=== PATIENT | female | born 1940 | race Caucasian/White ===

== ENCOUNTER 2017-07-01 19:06 | Inpatient (IN) | payer MEDICARE, OTHER ==
[~2017-07-01] VITALS: Ht 154.9 cm; Wt 97.1 kg
[~2017-07-01 19:06] MED LIST: AMLO5TAB4 PO; ATOR20TA PO; AZIT250T PO; Aspirin PO; CELE200C PO; LISI10TA59 PO; NITR0.4T SL; PREG50CA PO; SIMV40TA2 PO
--- NOTE | 2017-07-01 19:24 | NUR ---
PT IS C/O ABD PAIN X1 DAY.
--- NOTE | 2017-07-01 19:24 | NUR ---
PT AMBULATED INTO THE ER WITH A SLOW STEADY GAIT. PT'S ARM WAS LINKED IN HER DAUGHTERS ARM WHILE AMBULATING. PT THEN AMBULATED TO THE BATHROOM TO GIVE A URINE SAMPLE.
[2017-07-01] MEDS ORDERED: MORPHINE SULFATE INJ 2 MG/ML DISP.SYRIN ONE (19:42)
[2017-07-01] MEDS ORDERED: ONDANSETRON HCL/PF 4 MG/2 ML VIAL ONE (19:42)
[2017-07-01 19:43] LABS: BASOPHILS % (AUTO) 0.1 % (0.0-2.0); EOSINOPHILS % (AUTO) 0.1 % (0.0-6.0); HEMATOCRIT 46 % (33-45); HEMOGLOBIN 15.4 g/dL (11.5-14.8); LYMPHOCYTES # (AUTO) 1.2 /CMM (0.8-4.8); LYMPHOCYTES % (AUTO) 10.9 % (20.0-44.0); MEAN CORPUSCULAR HEMOGLOBIN 28 PG (26.0-33.0); MEAN CORPUSCULAR HGB CONC 34 g/dl (31.0-36.0); MEAN CORPUSCULAR VOLUME 84 fL (82-100); MONOCYTES # (AUTO) 0.6 /CMM (0.1-1.30); MONOCYTES % (AUTO) 5.7 % (2.0-12.0); NEUTROPHILS # (AUTO) 9.4 /CMM (1.8-8.9); NEUTROPHILS % (AUTO) 83.2 % (43.0-81.0); PLATELET COUNT (AUTO) 247 /CMM (150-450); RDW COEFFICIENT OF VARIATION 13.8 (11.5-15.0); RED BLOOD CELL COUNT(AUTO) 5.44 MIL/uL (4.0-5.2); WHITE BLOOD COUNT (AUTO) 11.2 K/uL (4.3-11.0)
--- NOTE | 2017-07-01 19:47 | NUR ---
PT REC'ING MEDICATION ORDERED.
[2017-07-01 19:51] LABS: APPEARANCE,URINE Slightly Cloudy (CLEAR); BILIRUBIN,URINE LARGE (NEGATIVE); BLOOD, URINE Negative Ery/uL (NEGATIVE); COLOR,URINE Yellow (YELLOW); KETONES,URINE Negative (NEGATIVE); LEUKOCYTE ESTERASE ,URINE Small (NEGATIVE); NITRITE, URINE Negative (NEGATIVE); PROTEIN,URINE Trace mg/dl (NEGATIVE); UGLUCOSE Negative (NEGATIVE); UROBILINOGEN,URINE >=8.0 EU/dL (0.2)
[2017-07-01 19:54] LABS: CALCIUM, SERUM 8.9 mg/dL (8.5-10.1); CARBON DIOXIDE 24 mmol/L (21-32); CHLORIDE 98 mmol/L (98-107); CREATININE 1.1 mg/dL (0.6-1.3); GLUCOSE 176 mg/dL (74-106); POTASSIUM 4.2 mmol/L (3.5-5.1); SODIUM SERUM 133 mmol/L (136-145); UREA NITROGEN, BLOOD 23 mg/dL (7-18)
[2017-07-01 19:56] LABS: INR 0.95 (0.87-1.13); PROTHROMBIN TIME 9.9 SECS (9.5-12.7)
[2017-07-01 20:00] LABS: ALANINE AMINOTRANSFERASE 506 U/L (12-78); ALBUMIN 3.2 g/dL (3.4-5.0); ALKALINE PHOSPHATASE 311 U/L (46-116); ASPARTATE AMINOTRANSFERASE 551 U/L (15-37); BILIRUBIN,DIRECT 1.7 mg/dL (0.0-0.2); LIPASE 161 U/L (73-393); TOTAL PROTEIN, SERUM 6.8 g/dL (6.4-8.2)
[2017-07-01] MEDS ORDERED: ONDANSETRON HCL/PF - ER 4 MG/2 ML VIAL IV ONE (20:00)
[2017-07-01] MEDS ORDERED: ACETAMINOPHEN 650 MG/20.3 ML UDC PO ONE (20:00)
[2017-07-01] MEDS ORDERED: MORPHINE SULFATE INJ 2 MG/ML DISP.SYRIN IV ONE (20:00)
--- NOTE | 2017-07-01 20:01 | NUR ---
US TECH ARRIVED AND IS AT THE BEDSIDE.
[2017-07-01 20:02] LABS: BACTERIA,URINE Moderate /HPF (None Seen); RBC,URINE 0-2 /HPF (0-2); SQUAMOUS EPITHELIAL CELL,UR Moderate /HPF (None Seen)
[2017-07-01] MEDS ORDERED: ACETAMINOPHEN 325 MG TABLET ONE (20:02)
[2017-07-01 20:03] LABS: HYALINE CASTS, URINE Rare /LPF (None Seen); MUCUS,URINE Rare /LPF (None Seen)
--- NOTE | 2017-07-01 20:18 | NUR ---
US FINISHED. CALLING RADIOLOGY FOR XRAY
[2017-07-01 20:55] LABS: BAND % (MANUAL) 12 % (0.0-5.0); LYMPHOCYTES % (MANUAL) 12 % (16-48); MONOCYTES % (MANUAL) 6 % (0-11.0); NEUTROPHILS % (MANUAL) 70 (42-76)
[2017-07-01] MEDS ORDERED: PIPERACILLIN /TAZOBACTAM 3.375 G in IV D5W 50 ML IV ONE (21:00)
[2017-07-01] MEDS ORDERED: PIPERACILLIN /TAZOBACTAM 3.375 G VIAL IV ONE (21:02)
--- NOTE | 2017-07-01 21:06 | NUR ---
DR. HORTON IS AT THE BEDSIDE SPEAKING TO THE PT AND HER DAUGHTER.
--- NOTE | 2017-07-01 21:13 | NUR ---
PT REC'D MEDICATION ORDERED.
--- NOTE | 2017-07-01 21:21 | NUR ---
REPORT GIVEN TO MARION KNOWLES FOR [place]. PT IS LEAVING FOR MS VIA SHAUNA WITH EMT.
[2017-07-01 21:30] VITALS: BP 135/78
[2017-07-01 21:35] VITALS: BP 135/78
--- NOTE | 2017-07-01 22:00 | NUR ---
ADMITTED A 76Y./O F, A, OX4, ETHIOPIAN SPEAKING W/ LIMITED ROMANIAN. BREATHING EVENLY. NO SOB. HOWEVER W/ O2 SAT OF 92% ON RA. PT WAS PLACED ON O2 AT 2LPM VIA NC. FOR BETTER OXYGENATION. W/ INTERMITTENT COUGH. NO C/O PAIN AT THIS TIME. NO N/V. MEDICAL HX WAS OBTAINED FROM THE DTR AT THE BED SIDE. PT AFEBRILE AT THIS TIME. NEEDS ATTENDED. BED LOW LOCKED . CALL LIGHT WITHIN REACH. WILL CONT TO MONITOR AND WILL F/U W/ MD'S ORDERS.
[2017-07-01] MEDS ORDERED: IV 1/2NS 1000 ML 1,000 ML IV PRN (22:36)
[2017-07-01] MEDS ORDERED: ATORVASTATIN 40 MG TABLET ONE (22:47)
[2017-07-01] MEDS ORDERED: ENOXAPARIN SODIUM 40 MG/0.4 ML DISP.SYRIN SQ ONE (22:48)
[2017-07-01] MEDS ORDERED: MORPHINE SULFATE INJ 2 MG/ML DISP.SYRIN IV PRN (23:00)
[2017-07-01] MEDS ORDERED: ONDANSETRON HCL/PF 4 MG/2 ML VIAL IVP PRN (23:00)
[2017-07-01] MEDS: ATORVASTATIN 40 MG TABLET PO SCH (23:00)
[2017-07-01] MEDS ORDERED: Z GUARD REMEDY 2 OZ OINT TP PRN (23:00)
[2017-07-01] MEDS: ENOXAPARIN SODIUM 40 MG/0.4 ML DISP.SYRIN SQ SCH (23:12)
[2017-07-02] MEDS ORDERED: ACETAMINOPHEN 650 MG/SUPP.RECT RC PRN (04:00)
--- NOTE | 2017-07-02 04:00 | NUR ---
PAGED DR. MORRIS AND SPOKE TO HIM OVER THE PHONE TO VERIFY THE ORDER FOR IVF HYDRATION OF 1/2NS SINCE THE PATIENT HAS Na LEVEL :133. MD W/ A NEW ORDER TO CHANGE THE IVF TO NS W/ THE SAME RATE OF 100/HR. ALSO OBTAINED AN ORDER FOR TYLENOL SUPPOSITORY SINCE THE PT IS NPO. ALL ORDERS NOTED. WILL CONT TO MONITOR,
[2017-07-02] MEDS ORDERED: PIPERACILLIN /TAZOBACTAM 2.25 G VIAL IV ONE (04:12)
[2017-07-02] MEDS ORDERED: ACETAMINOPHEN 650 MG/SUPP.RECT RC ONE (05:00)
[2017-07-02] MEDS ORDERED: PIPERACILLIN /TAZOBACTAM 4.5 G in IV D5W 50 ML IV SCH (05:00)
--- NOTE | 2017-07-02 05:02 | NUR ---
TYLENOL SUPP GIVEN ORDERED FOR TEMP 101.4F. COOLING MEASURES PROVIDED. ON ONGOING IVF HYDRATION . WILL CONT TO MONITOR.
[2017-07-02] MEDS: IV NS 0.9% 1,000 ML IV PRN (05:03)
--- NOTE | 2017-07-02 06:41 | NUR ---
RN NOTE; PT IN BED SLEEPING, AROUSES EASILY. BREATHING EVENLY. W/ INTERMITTENT COUGH. NO S/S OR C/O PAIN OR DISCOMFORT. ON ONGOING IVF AND ATB. ALL NEEDS ATTENDED. BED LOW LOCKED. CALL LIGHT WITHIN REACH. WILL CONT TO MONITOR AND WILL ENDORSE TO AM SHIFT FOR [place].
[2017-07-02 06:50] LABS: BASOPHILS % (AUTO) 0.1 % (0.0-2.0); HEMATOCRIT 43 % (33-45); HEMOGLOBIN 14.3 g/dL (11.5-14.8); LYMPHOCYTES # (AUTO) 1.1 /CMM (0.8-4.8); LYMPHOCYTES % (AUTO) 7.7 % (20.0-44.0); MEAN CORPUSCULAR HEMOGLOBIN 29 PG (26.0-33.0); MEAN CORPUSCULAR HGB CONC 33 g/dl (31.0-36.0); MEAN CORPUSCULAR VOLUME 86 fL (82-100); MONOCYTES # (AUTO) 0.7 /CMM (0.1-1.30); NEUTROPHILS # (AUTO) 12.1 /CMM (1.8-8.9); NEUTROPHILS % (AUTO) 87.2 % (43.0-81.0); PLATELET COUNT (AUTO) 195 /CMM (150-450); RDW COEFFICIENT OF VARIATION 15.4 (11.5-15.0); WHITE BLOOD COUNT (AUTO) 13.9 K/uL (4.3-11.0)
--- NOTE | 2017-07-02 07:46 | NUR ---
PATIENT IS SITTING UP IN BED TALKING TO HER DAUGHTER ON THE PHONE. OVER THE PHONE, EXPLAINED TO THE PATIENT'S DAUGHTER THAT THE DOCTORS WANT TO DO A HIDA SCAN. EXPLAINED THE PROCEDURE TO THE DAUGHTER WHO REPEATED BACK THE INSTRUCTIONS AND PROCEDURE. DAUGHTER THEN EXPLAINED THE PROCEDURE TO HER MOTHER IN [place]IZ[place] THERE IS NO ONE ON STAFF AT THE MOMENT WHO CAN TRANSLATE. PATIENT VERBALIZED UNDERSTANDING AND SIGNED THE CONSENT FORM FOR THE HIDA SCAN.
--- NOTE | 2017-07-02 07:52 | NUR ---
NURSING AUDIO VISUAL TECHNICIAN, ERIC IS ON THE FLOOR. AND SPOKE IN [place] TO THE PATIENT AND VERIFIED UNDERSTANDING OF THE HIDA SCAN PROCEDURE. PATIENT IS STILL IN AGREEMENT.
[2017-07-02 08:00] VITALS: BP 96/58
[2017-07-02] MEDS: AMLODIPINE BESYLATE 5 MG TABLET PO SCH (08:43)
[2017-07-02] MEDS: LISINOPRIL (10MG) 10 MG TABLET PO SCH (08:44)
[2017-07-02] MEDS: PANTOPRAZOLE 40 MG VIAL IV SCH (08:50)
[2017-07-02] MEDS: ASPIRIN EC 81 MG TABLET.DR PO SCH (08:50)
[2017-07-02] MEDS: PREGABALIN 25 MG CAPSULE PO SCH ×2 (08:50→17:19)
[2017-07-02] MEDS: PIPERACILLIN /TAZOBACTAM 2.25 G in IV D5W 50 ML IV SCH ×3 (11:09→23:22)
--- NOTE | 2017-07-02 11:49 | NUR ---
SPOKE TO MESERET IN [place]. MESERET STATES THAT THEY WILL COME HAT BAND ATTACHER THE PATIENT FOR HIDA SCAN SHORTLY AND THEY WILL TRAVEL BY WHEEL CHAIR. INFORMED PATIENT. SHE STATES "I AM READY."
[2017-07-02] MEDS ORDERED: DEXTROSE 50%-WATER 50 ML DISP.SYRIN IV PRN (12:30)
[2017-07-02 13:41] LABS: ALANINE AMINOTRANSFERASE 421 U/L (12-78); ALBUMIN 2.6 g/dL (3.4-5.0); ALKALINE PHOSPHATASE 266 U/L (46-116); ASPARTATE AMINOTRANSFERASE 312 U/L (15-37); BILIRUBIN,TOTAL 3.3 mg/dL (0.2-1.0); CALCIUM, SERUM 8.4 mg/dL (8.5-10.1); CARBON DIOXIDE 25 mmol/L (21-32); CHLORIDE 97 mmol/L (98-107); CHOLESTEROL 144 mg/dL (<200); CREATININE 1.3 mg/dL (0.6-1.3); GLUCOSE 218 mg/dL (74-106); HDL CHOLESTEROL 69 mg/dL (40-60); LDL 84 mg/dL (0-99); LIPASE 115 U/L (73-393); MAGNESIUM 1.4 mg/dL (1.8-2.4); PHOSPHORUS 3.8 mg/dL (2.5-4.9); SODIUM SERUM 132 mmol/L (136-145); THYROID STIMULATING HORMONE 0.602 uIU/mL (0.358-3.74); TOTAL PROTEIN, SERUM 5.9 g/dL (6.4-8.2); TRIGLYCERIDES 45 mg/dL (30-150); UREA NITROGEN, BLOOD 25 mg/dL (7-18)
[2017-07-02] MEDS ORDERED: IPRATROPIUM NEB FS 0.5 MG/2.5 ML AMPUL.NEB NEB PRN (15:00)
[2017-07-02] MEDS: ACETYLCYSTEINE 10% SOLN 400 MG/4 ML VIAL NEB SCH ×2 (15:02→23:37)
[2017-07-02] MEDS: Magnesium 1GM/D5W 100ML PREMIX 100 ML IV SCH ×2 (15:42→17:59)
[2017-07-02 16:00] VITALS: BP 100/55
[2017-07-02] MEDS: BLOOD SUGAR DIAGNOSTIC 1 EACH STRIP IN SCH (17:19)
[2017-07-02] MEDS: INSULIN REGULAR, HUMAN 100 UNIT/ML 3 ML VIAL SQ PRN (17:24)
--- NOTE | 2017-07-02 18:14 | NUR ---
CALLED JERAMIE CHANEL, TO INFORM HER OF THE RESULT OF GRAM NEGATIVE RODS IN THE BLOOD CULTURE. SHE STATES THAT THE PATIENT IS ALREADY ON ZOSYN SO THERE IS NOT THING TO DO.
--- NOTE | 2017-07-02 19:26 | NUR ---
PT NOW RESTING COMFORTABLY IN BED. NO SOB OR DISTRESS. PATIENT DENIES PAIN. BED IN A LOW POSITION, CALL LIGHT WITHIN PATIENT REACH. ENDORSED TO BENSON FOR [place].
--- NOTE | 2017-07-02 19:30 | NUR ---
RN NOTE; RECEIVED PT IN BED AWAKE AND ALERT, BREATHING EVENLY. NO SOB. STILL W/ ON AND OFF COUGH. NAD. REPORTED ABD. PAIN UNDER CONTROL. NEEDS ATTENDED. BED LOW LOCKED. CALL LIGHT WITHIN REACH. WILL CONT TO MONITOR,
[2017-07-02 20:00] VITALS: BP 124/72
[2017-07-02] MEDS: ATORVASTATIN 40 MG TABLET PO SCH (22:00)
[2017-07-02] MEDS ORDERED: SIMVASTATIN 40 MG TABLET PO SCH (22:00)
[2017-07-02] MEDS: ENOXAPARIN SODIUM 40 MG/0.4 ML DISP.SYRIN SQ SCH (22:00)
--- NOTE | 2017-07-02 22:00 | NUR ---
PT WAS SEEN AND EXAMINED BY DR. WILLETT. W/ AN ORDER FOR SPUTUM CULTURE. ALSO PER MD TO KEEP PT NPO INCLUDING MEDS SO HELD LIPITOR . ALSO ASKED MD IF PT CAN RECEIVED LOVENOX OR NO FOR POSSIBLE SURGERY. DR WILLETT RECOMMENDED TO HOLD THE LOVENOX FOR NOW.
[2017-07-02] MEDS: ALBUTEROL HALF STRENGTH 1.25 MG/3 ML VIAL.NEB NEB PRN (23:37)
[2017-07-03] MEDS: BLOOD SUGAR DIAGNOSTIC 1 EACH STRIP IN SCH ×4 (00:04→18:39)
[2017-07-03] MEDS: PIPERACILLIN /TAZOBACTAM 2.25 G in IV D5W 50 ML IV SCH ×3 (05:48→18:41)
[2017-07-03] MEDS: IV NS 0.9% 1,000 ML IV PRN ×2 (05:48→09:19)
--- NOTE | 2017-07-03 06:49 | NUR ---
PT IN BED SLEEPING AROUSES EASILY. BREATHING EVENLY. NO SOB. STILL W/ COUGH. SPUTUM COLLECTED . NO C/O PAIN DURING THE NIGHT. NO N/V. REMAINED AFEBRILE. NEEDS ATTENDED. BED LOW LOCKED. CALL LIGHT WITHIN REACH. WILL CONT TO MONITOR AND WILL ENDORSE TO AM SHIFT FOR [place].
[2017-07-03 06:54] LABS: BASOPHILS % (AUTO) 0.3 % (0.0-2.0); EOSINOPHILS # (AUTO) 0.2 /CMM (0.0-0.7); EOSINOPHILS % (AUTO) 2.2 % (0.0-6.0); HEMATOCRIT 43 % (33-45); HEMOGLOBIN 13.9 g/dL (11.5-14.8); LYMPHOCYTES # (AUTO) 1.4 /CMM (0.8-4.8); LYMPHOCYTES % (AUTO) 19.4 % (20.0-44.0); MEAN CORPUSCULAR HEMOGLOBIN 28 PG (26.0-33.0); MEAN CORPUSCULAR HGB CONC 33 g/dl (31.0-36.0); MEAN CORPUSCULAR VOLUME 86 fL (82-100); MONOCYTES # (AUTO) 0.5 /CMM (0.1-1.30); MONOCYTES % (AUTO) 6.7 % (2.0-12.0); NEUTROPHILS % (AUTO) 71.4 % (43.0-81.0); PLATELET COUNT (AUTO) 184 /CMM (150-450); RDW COEFFICIENT OF VARIATION 15.5 (11.5-15.0); RED BLOOD CELL COUNT(AUTO) 4.96 MIL/uL (4.0-5.2)
[2017-07-03 07:06] LABS: CALCIUM, SERUM 8.5 mg/dL (8.5-10.1); CARBON DIOXIDE 27 mmol/L (21-32); CHLORIDE 105 mmol/L (98-107); CREATININE 0.9 mg/dL (0.6-1.3); GLUCOSE 113 mg/dL (74-106); MAGNESIUM 2.1 mg/dL (1.8-2.4); PHOSPHORUS 2.2 mg/dL (2.5-4.9); POTASSIUM 3.7 mmol/L (3.5-5.1); SODIUM SERUM 141 mmol/L (136-145); UREA NITROGEN, BLOOD 14 mg/dL (7-18)
[2017-07-03 07:29] LABS: ALBUMIN 2.4 g/dL (3.4-5.0); BILIRUBIN,DIRECT 1.9 mg/dL (0.0-0.2); BILIRUBIN,TOTAL 2.3 mg/dL (0.2-1.0); TOTAL PROTEIN, SERUM 5.8 g/dL (6.4-8.2)
[2017-07-03] MEDS: ASPIRIN EC 81 MG TABLET.DR PO SCH (08:01)
[2017-07-03] MEDS: PREGABALIN 25 MG CAPSULE PO SCH ×2 (08:01→17:54)
[2017-07-03] MEDS: LISINOPRIL (10MG) 10 MG TABLET PO SCH (08:01)
[2017-07-03] MEDS: AMLODIPINE BESYLATE 5 MG TABLET PO SCH (08:01)
[2017-07-03 08:30] VITALS: BP 123/70
[2017-07-03] MEDS: ACETYLCYSTEINE 10% SOLN 400 MG/4 ML VIAL NEB SCH ×3 (08:33→23:51)
--- NOTE | 2017-07-03 09:00 | NUR ---
MS RN OPENING NOTE PATIENT IS ALERT AND ORIENTED x4. NO PAIN AT THIS TIME. NO SOB OR DISTRESS NOTED. CALL LIGHT WITHIN REACH. SAFETY MEASURES IMPLEMENTED. ABLE TO COMMUNICATE NEEDS. NPO AT THIS TIME. IV INTACT AND PATENT NO REDNESS OR SWELLING NOTED. IV FLUIDS RUNNING RUNNING AT THIS TIME. LAB RESULTS PENDING. WILL CONTINUE TO MONITOR THROUGHOUT SHIFT
[2017-07-03] MEDS: PANTOPRAZOLE 40 MG VIAL IV SCH (09:19)
[2017-07-03] MEDS ORDERED: K PHOS NEUTRAL 250 MG TABLET PO ONE (13:00)
[2017-07-03] MEDS ORDERED: Sodium Phosphate 15 MMOL in IV D5W 250 ML IV ONE (13:30)
[2017-07-03 16:00] VITALS: BP 139/72
--- NOTE | 2017-07-03 18:15 | NUR ---
RN NOTE PATIENT TRANSFERRED TO ROOM 322-1. BEDSIDE REPORT GIVE TO MARION ARNOLD. ALL BELONGINGS AT BEDSIDE AND ALL MEDICATIONS GIVEN TO RN. PATIENT STABLE
--- NOTE | 2017-07-03 18:40 | NUR ---
PATIENT TRANSFERRED FROM [place] [id number] IN STABLE CONDITION. CALL LIGHT IS WITHIN REACH. BEDSIDE RAILS ARE UP X2. BED IS LOCKED AND LOWERED. WILL CONTINUE TO MONITOR.
--- NOTE | 2017-07-03 19:01 | NUR ---
MS RN CLOSING NOTES PATIENT IS IN STABLE CONDITION. IN NO APPARENT DISTRESS. BEDSIDE RAILS ARE UP X2. BED IS LOCKED AND LOWERED. CALL LIGHT IS WITHIN REACH. WILL ENDORSE CARE TO SECRETARY BOARD OF COMMISSIONERS NURSE FOR [place].
[2017-07-03 20:00] VITALS: BP 145/90
--- NOTE | 2017-07-03 20:00 | NUR ---
MS RN OPENING NOTE RECEIVED PATIENT IN ROOM, RESTING COMFORTABLY. PT IS ALERT AND ORIENTED x4. NO SOB OR DISTRESS NOTED. NO COMPLAIN OF PAIN/DISCOMFORT AT THIS TIME. CALL LIGHT WITHIN REACH. SAFETY MEASURES IMPLEMENTED. NPO AT THIS TIME. IV INTACT AND PATENT. ALL NEEDS ATTENDED AND ANTICIPATED. WILL CONTINUE TO MONITOR FOR SAFETY.
[2017-07-03] MEDS: ATORVASTATIN 40 MG TABLET PO SCH (21:27)
[2017-07-03] MEDS: ENOXAPARIN SODIUM 40 MG/0.4 ML DISP.SYRIN SQ SCH (23:00)
--- NOTE | 2017-07-03 23:38 | NUR ---
PER HOLD [facility] FOR SURGERY TOMORROW. WILL CONTINUE TO MONITOR.
[2017-07-04] MEDS: PIPERACILLIN /TAZOBACTAM 2.25 G in IV D5W 50 ML IV SCH ×4 (00:02→18:13)
[2017-07-04] MEDS: BLOOD SUGAR DIAGNOSTIC 1 EACH STRIP IN SCH ×5 (00:02→23:14)
[2017-07-04] MEDS: IV NS 0.9% 1,000 ML IV PRN (04:03)
--- NOTE | 2017-07-04 06:35 | NUR ---
MS RN CLOSING NOTES PATIENT IN BED. RESTING COMFORTABLY. NO SOB. RESPIRATION EVEN AND UNLABORED. NO COMPLAIN OF PAIN/DISCOMFORT AT THIS TIME. IV PATENT AND INTACT. NO ACUTE DISTRESS NOTED. BEDSIDE RAILS ARE UP X2. BED IS LOCKED AND LOWERED. CALL LIGHT IS WITHIN REACH. WILL ENDORSE TO PRINCIPAL ARCHITECTURAL FIRM NURSE FOR [place].
[2017-07-04 07:18] LABS: BASOPHILS % (AUTO) 0.3 % (0.0-2.0); EOSINOPHILS # (AUTO) 0.2 /CMM (0.0-0.7); EOSINOPHILS % (AUTO) 2.9 % (0.0-6.0); HEMATOCRIT 45 % (33-45); HEMOGLOBIN 14.6 g/dL (11.5-14.8); LYMPHOCYTES # (AUTO) 1.7 /CMM (0.8-4.8); LYMPHOCYTES % (AUTO) 28.8 % (20.0-44.0); MEAN CORPUSCULAR HEMOGLOBIN 28 PG (26.0-33.0); MEAN CORPUSCULAR HGB CONC 32 g/dl (31.0-36.0); MEAN CORPUSCULAR VOLUME 86 fL (82-100); MONOCYTES # (AUTO) 0.5 /CMM (0.1-1.30); MONOCYTES % (AUTO) 7.6 % (2.0-12.0); NEUTROPHILS # (AUTO) 3.7 /CMM (1.8-8.9); NEUTROPHILS % (AUTO) 60.4 % (43.0-81.0); PLATELET COUNT (AUTO) 197 /CMM (150-450); RDW COEFFICIENT OF VARIATION 15.5 (11.5-15.0); RED BLOOD CELL COUNT(AUTO) 5.25 MIL/uL (4.0-5.2); WHITE BLOOD COUNT (AUTO) 6.1 K/uL (4.3-11.0)
--- NOTE | 2017-07-04 07:27 | NUR ---
MS RN OPENING NOTES RECEIVED PATIENT IN STABLE CONDITION. PATIENT IS ALERT AND ORIENTED. BEDSIDE RAILS ARE UP X2. BED IS LOCKED AND LOWERED. CALL LIGHT IS WITHIN REACH. WILL CONTINUE TO MONITOR.
[2017-07-04 07:33] LABS: INR 0.94 (0.87-1.13); PROTHROMBIN TIME 9.8 SECS (9.5-12.7)
[2017-07-04 07:37] LABS: CALCIUM, SERUM 8.2 mg/dL (8.5-10.1); CARBON DIOXIDE 26 mmol/L (21-32); CHLORIDE 107 mmol/L (98-107); CREATININE 0.8 mg/dL (0.6-1.3); GLUCOSE 98 mg/dL (74-106); PHOSPHORUS 2.3 mg/dL (2.5-4.9); POTASSIUM 3.4 mmol/L (3.5-5.1); SODIUM SERUM 142 mmol/L (136-145); UREA NITROGEN, BLOOD 13 mg/dL (7-18)
[2017-07-04] MEDS: ACETYLCYSTEINE 10% SOLN 400 MG/4 ML VIAL NEB SCH ×3 (07:54→23:16)
[2017-07-04 08:00] VITALS: BP 98/66
[2017-07-04] MEDS: PREGABALIN 25 MG CAPSULE PO SCH ×2 (09:00→17:20)
[2017-07-04] MEDS: ASPIRIN EC 81 MG TABLET.DR PO SCH (09:00)
[2017-07-04] MEDS: LISINOPRIL (10MG) 10 MG TABLET PO SCH (09:00)
[2017-07-04] MEDS: PANTOPRAZOLE 40 MG VIAL IV SCH ×2 (09:00→20:54)
[2017-07-04] MEDS: AMLODIPINE BESYLATE 5 MG TABLET PO SCH (09:00)
--- NOTE | 2017-07-04 09:07 | NUR ---
HELD MORNING MEDICATIONS DUE TO PATIENT NPO FOR SURGERY
[2017-07-04] MEDS ORDERED: POTASSIUM CL. PREMIX PERIPHER. 50 ML IV SCH (09:25)
--- NOTE | 2017-07-04 10:00 | NUR ---
PATIENT TAKEN DOWN TO OPERATION ROOM FOR SURGERY
[2017-07-04] MEDS: POTASSIUM CL. PREMIX PERIPHER. 50 ML IV SCH ×2 (10:03→10:24)
[2017-07-04] MEDS ORDERED: SUCCINYLCHOLINE CHLORIDE 20 MG/ML VIAL ONE (10:17)
[2017-07-04] MEDS ORDERED: HYDROMORPHONE INJ 2 MG/ML DISP.SYRIN ONE (10:17)
[2017-07-04] MEDS ORDERED: ROCURONIUM BROMIDE 50 MG/5 ML ONE ×2 (10:18→11:22)
[2017-07-04] MEDS ORDERED: BUPIVACAINE 0.5 % PF 150 MG/30 ML VIAL ONE (11:10)
[2017-07-04] MEDS ORDERED: LIDOCAINE 0.5% HCL 50 ML VIAL ONE (11:10)
--- NOTE | 2017-07-04 11:19 | NUR ---
SENT MOHANSYN TO OPERATION ROOM FOR ADMINISTRATION.
--- NOTE | 2017-07-04 12:00 | NUR ---
PATIENT IN OPERATION ROOM. CAN NOT CHECK BLOOD SUGAR. WILL RECHECK WHEN PATIENT RETURNS
[2017-07-04] MEDS ORDERED: DESFLURANE 240 ML BOTTLE IH ONE (12:41)
[2017-07-04] MEDS ORDERED: FENTANYL PF 100MCG/2ML AMPUL ONE (14:12)
--- NOTE | 2017-07-04 15:28 | NUR ---
PATIENT RETURNED BACK FROM RECOVERY ROOM. PATIENT IN STABLE CONDITION. WILL CONTINUE TO MONITOR.
[2017-07-04] MEDS ORDERED: IV LR 1000 ML 1,000 ML IV PRN (15:30)
[2017-07-04] MEDS ORDERED: ONDANSETRON HCL/PF 4 MG/2 ML VIAL IV PRN (15:30)
[2017-07-04 16:00] VITALS: BP 120/66
[2017-07-04] MEDS: ACETAMINOPHEN 325 MG TABLET PO SCH (16:01)
[2017-07-04] MEDS: IBUPROFEN 400 MG TABLET PO SCH (16:01)
[2017-07-04] MEDS: GABAPENTIN 300 MG CAPSULE PO SCH (16:01)
[2017-07-04] MEDS ORDERED: Sodium Phosphate 15 MMOL in IV D5W 250 ML IV ONE (18:00)
--- NOTE | 2017-07-04 18:41 | NUR ---
GAVE POTASSIUM REPLACEMENT LATE DUE TO PATIENT IN SURGERY. 2 BAGS TRANSFUSED
--- NOTE | 2017-07-04 19:00 | NUR ---
MS RN CLOSING NOTES PATIENT IS RESTING IN NO APPARENT DISTRESS. VITAL SIGNS ARE STABLE. PATIENT IS ALERT. BEDSIDE RAILS ARE UP X2. BED IS LOCKED AND LOWERED. WILL ENDORSE CARE TO SILVERWARE BUFFER NURSE FOR [place].
--- NOTE | 2017-07-04 19:30 | NUR ---
MS RN NOTES RECEIVED ON BED A/O X4,SPEAK TURKMEN.S/P LAP CHOLECYSTECTOMY TODAY BY DR AGUILAR.DRESSING INTACT AND DRY.PAIN TOLERABLE AT THE MOMENT.IV POTASSIUM INFUSING VIA IV PUMP ON RIGHT AC.GÓMEZ CATH IN PLACE DRAINING DENI COLORED URINE OUTPUT.DVT PUMP TO START.CALL LIGHT IN REACH,NEEDS ANTICIPATED.
[2017-07-04 20:00] VITALS: BP 141/81
--- NOTE | 2017-07-04 20:01 | NUR ---
MS RN NOTES SODIUM PHOSPHATE IV HUNG LATE DUE TO LOTS OF IV ABX AND POTASSIUM IV TO INFUSE POST OP PER REPORT BY CATALINA SCHULTZ DAY NURSE.
[2017-07-04] MEDS: ATORVASTATIN 40 MG TABLET PO SCH (22:02)
--- NOTE | 2017-07-04 23:00 | NUR ---
MS RN NOTES DUE LOVENOX 40MG SQ GIVEN VIA RIGHT LOWER ABDOMEN
[2017-07-04] MEDS: ENOXAPARIN SODIUM 40 MG/0.4 ML DISP.SYRIN SQ SCH (23:08)
--- NOTE | 2017-07-04 23:15 | NUR ---
MS RN NOTES ACCU-CHECK BLOOD SUGAR CHECK 186,3 UNITS HUMULIN R HELD,NPO STATUS.
[2017-07-04] MEDS: ALBUTEROL HALF STRENGTH 1.25 MG/3 ML VIAL.NEB NEB PRN (23:16)
[2017-07-04] MEDS: INSULIN REGULAR, HUMAN 100 UNIT/ML 3 ML VIAL SQ PRN (23:20)
[2017-07-05] MEDS: GABAPENTIN 300 MG CAPSULE PO SCH ×4 (00:11→23:24)
[2017-07-05] MEDS: ACETAMINOPHEN 325 MG TABLET PO SCH ×4 (00:11→23:24)
[2017-07-05] MEDS: IBUPROFEN 400 MG TABLET PO SCH ×4 (00:12→23:24)
[2017-07-05] MEDS: PIPERACILLIN /TAZOBACTAM 2.25 G in IV D5W 50 ML IV SCH ×5 (00:23→23:28)
--- NOTE | 2017-07-05 05:00 | NUR ---
MS RN NOTES DR AGUILAR CALLED,MADE AWARE OF PATIENT STATUS.NO NEW ORDER
--- NOTE | 2017-07-05 05:30 | NUR ---
MS RN NOTES DUE JAYESH SEGOVIA.BLOOD SUGAR CHECK 178,3 UNITS HUMULIN R HELD,NPO STATUS.
[2017-07-05] MEDS: BLOOD SUGAR DIAGNOSTIC 1 EACH STRIP IN SCH ×4 (05:54→23:21)
[2017-07-05] MEDS: INSULIN REGULAR, HUMAN 100 UNIT/ML 3 ML VIAL SQ PRN (05:59)
--- NOTE | 2017-07-05 07:07 | NUR ---
MS RN NOTES FAIRLY RESTED,PAIN MANAGEMENT.NGT TO LIS PATENT DRAINING GREENISH OUTPUT.GÓMEZ CATH IN PLACE DRAINS 400ML OUTPUT.ENCOURAGE AMBULATION PER DR AGUILAR .IVF INFUSING,CALL LIGHT IN REACH.WILL ENDORSE TO DAY NURSE FOR [place].
--- NOTE | 2017-07-05 07:35 | NUR ---
MS RN RECEIVED ON BED, AWAKE,ALERT,ORIENTED X4,NOT IN ANY DFORM OF DISTRESS, RESPIRATIONS EVEN AND UNLABORED,NO SOB NOTED,S/P CHOLECYSTECTOMY, OPEN, W/ DRESSING DRY AND INTACT,NGT IN PLACE W/ GREENISH COLOR, MODERATE AMOUNT,GÓMEZ TO GRAVITY, YELLOWISH URINE OUTPUT, DENIES PAIN AT THIS TIME, ALL NEEDS ATTENDED.
[2017-07-05] MEDS: ACETYLCYSTEINE 10% SOLN 400 MG/4 ML VIAL NEB SCH (07:37)
[2017-07-05 08:00] VITALS: BP 141/71
[2017-07-05 08:10] LABS: HEMATOCRIT 41 % (33-45); HEMOGLOBIN 13.4 g/dL (11.5-14.8); LYMPHOCYTES # (AUTO) 1.1 /CMM (0.8-4.8); LYMPHOCYTES % (AUTO) 6.9 % (20.0-44.0); MEAN CORPUSCULAR HEMOGLOBIN 28 PG (26.0-33.0); MEAN CORPUSCULAR HGB CONC 32 g/dl (31.0-36.0); MEAN CORPUSCULAR VOLUME 87 fL (82-100); MONOCYTES # (AUTO) 0.7 /CMM (0.1-1.30); MONOCYTES % (AUTO) 4.3 % (2.0-12.0); NEUTROPHILS # (AUTO) 13.7 /CMM (1.8-8.9); NEUTROPHILS % (AUTO) 88.8 % (43.0-81.0); PLATELET COUNT (AUTO) 222 /CMM (150-450); RDW COEFFICIENT OF VARIATION 15.5 (11.5-15.0); RED BLOOD CELL COUNT(AUTO) 4.74 MIL/uL (4.0-5.2); WHITE BLOOD COUNT (AUTO) 15.5 K/uL (4.3-11.0)
[2017-07-05 08:22] LABS: ALANINE AMINOTRANSFERASE 176 U/L (12-78); ALBUMIN 2.2 g/dL (3.4-5.0); ALKALINE PHOSPHATASE 174 U/L (46-116); ASPARTATE AMINOTRANSFERASE 67 U/L (15-37); BILIRUBIN,DIRECT 0.4 mg/dL (0.0-0.2); BILIRUBIN,TOTAL 0.9 mg/dL (0.2-1.0); CALCIUM, SERUM 8.1 mg/dL (8.5-10.1); CARBON DIOXIDE 26 mmol/L (21-32); CHLORIDE 109 mmol/L (98-107); CREATININE 0.8 mg/dL (0.6-1.3); GLUCOSE 198 mg/dL (74-106); MAGNESIUM 1.9 mg/dL (1.8-2.4); PHOSPHORUS 2.5 mg/dL (2.5-4.9); POTASSIUM 3.9 mmol/L (3.5-5.1); SODIUM SERUM 142 mmol/L (136-145); TOTAL PROTEIN, SERUM 5.8 g/dL (6.4-8.2); UREA NITROGEN, BLOOD 16 mg/dL (7-18)
--- NOTE | 2017-07-05 09:00 | NUR ---
ms rn due meds given,tolerated well.
[2017-07-05] MEDS: PREGABALIN 25 MG CAPSULE PO SCH ×2 (09:59→18:19)
[2017-07-05] MEDS: PANTOPRAZOLE 40 MG VIAL IV SCH ×2 (09:59→20:37)
[2017-07-05] MEDS: IV NS 0.9% 1,000 ML IV PRN ×2 (10:00→22:49)
[2017-07-05] MEDS: ASPIRIN EC 81 MG TABLET.DR PO SCH (10:00)
[2017-07-05] MEDS: LISINOPRIL (10MG) 10 MG TABLET PO SCH (10:02)
[2017-07-05] MEDS: AMLODIPINE BESYLATE 5 MG TABLET PO SCH (10:02)
--- NOTE | 2017-07-05 12:00 | NUR ---
ms rn bs -159 - no coverage given,not eating.
[2017-07-05 16:00] VITALS: BP 149/81
[2017-07-05] MEDS: NYSTATIN (PYXIS) 500,000 UNIT/5 ML ORAL.SUSP PO SCH (18:19)
--- NOTE | 2017-07-05 19:05 | NUR ---
ms rn on bed, no distress noted, will monitor patyient. daughter at bedside.
--- NOTE | 2017-07-05 19:15 | NUR ---
MS RN NOTES RECEIVED RESTING COMFORTABLY ON BED,A/O X4,BREATHING NON LABORED,SKIN SLIGHTLY WARM TO THE TOUCH,FACIAL KERI CHEEK NOTED.STILL ON NGT TO LIS DRAINING GREENISH OUTPUT.ABDOMEN SOFT ,NON DISTENDED,SURGICAL INCISION WITH DRESSING INTACT AND DRY.PRESENT IVF NS AT 100ML/HR RATE,SITE PATENT ON RFA.SALINE LOCK RIGHT INTACT AND PATENT.WITH GÓMEZ CATH IN PLACE DRAINING DENI CLOUDY OUTPUT.CALL LIGHT IN REACH,NEEDS ANTICIPATED.
--- NOTE | 2017-07-05 19:30 | NUR ---
MS RN NOTES MD VISIT SEEN AND EXAMINED BY DR AGUILAR,INSTRUCTED NURSE PATIENT TO HAVE CLEAR LIQUID,CAN HAVE CANDY AND ICE CHIPS,NOTED AND CARRIED OUT.
[2017-07-05 20:00] VITALS: BP_SYST 149; BP_DIAS 75; BP_DIAS 79
[2017-07-05] MEDS: ENOXAPARIN SODIUM 40 MG/0.4 ML DISP.SYRIN SQ SCH (23:17)
--- NOTE | 2017-07-05 23:30 | NUR ---
MS RN NOTES ACCU-CHECK BLOOD SUGAR CHECK 118,NO INSULIN COVERAGE.
--- NOTE | 2017-07-05 23:30 | NUR ---
MS RN NOTES DUE PO PAIN MEDS ADMINISTERED,NGT HELD FOR NOW FOR AN HOUR ORDERED.
--- NOTE | 2017-07-06 00:45 | NUR ---
MS RN NOTES NGT RESUMED TO LOW INTERMITTENT SUCTION,LIGHT GREENISH YELLOW OUTPUT NOTED 400ML
[2017-07-06] MEDS: PIPERACILLIN /TAZOBACTAM 2.25 G in IV D5W 50 ML IV SCH ×3 (05:23→17:44)
[2017-07-06] MEDS: BLOOD SUGAR DIAGNOSTIC 1 EACH STRIP IN SCH ×3 (05:24→17:40)
--- NOTE | 2017-07-06 05:30 | NUR ---
MS RN NOTES ACCU-CHECK BLOOD SUGAR CHECK 104,NO INSULIN COVERAGE.
[2017-07-06 06:29] LABS: BASOPHILS % (AUTO) 0.2 % (0.0-2.0); EOSINOPHILS % (AUTO) 0.3 % (0.0-6.0); HEMATOCRIT 42 % (33-45); HEMOGLOBIN 13.4 g/dL (11.5-14.8); LYMPHOCYTES # (AUTO) 1.6 /CMM (0.8-4.8); LYMPHOCYTES % (AUTO) 9.8 % (20.0-44.0); MEAN CORPUSCULAR HEMOGLOBIN 28 PG (26.0-33.0); MEAN CORPUSCULAR HGB CONC 32 g/dl (31.0-36.0); MEAN CORPUSCULAR VOLUME 87 fL (82-100); MONOCYTES # (AUTO) 0.8 /CMM (0.1-1.30); MONOCYTES % (AUTO) 4.8 % (2.0-12.0); NEUTROPHILS % (AUTO) 84.9 % (43.0-81.0); PLATELET COUNT (AUTO) 208 /CMM (150-450); RDW COEFFICIENT OF VARIATION 15.7 (11.5-15.0); RED BLOOD CELL COUNT(AUTO) 4.78 MIL/uL (4.0-5.2); WHITE BLOOD COUNT (AUTO) 16.5 K/uL (4.3-11.0)
--- NOTE | 2017-07-06 06:37 | NUR ---
MS RN NOTES FAIRLY RESTED.CLAIMED SHE FEELS BETTER,SLEEP BETTER.ABLE TO DANGLE LEGS,WANTS WALK TODAY GRADUALLY.IVF INFUSING,SITE REMAINS PATENT.IN NO ACUTE DISTRESS.WILL ENDORSE TO DAY NURSE FOR [place].
[2017-07-06 06:53] LABS: ALANINE AMINOTRANSFERASE 129 U/L (12-78); ALKALINE PHOSPHATASE 142 U/L (46-116); ASPARTATE AMINOTRANSFERASE 52 U/L (15-37); BILIRUBIN,TOTAL 0.8 mg/dL (0.2-1.0); CARBON DIOXIDE 25 mmol/L (21-32); CHLORIDE 112 mmol/L (98-107); CREATININE 0.8 mg/dL (0.6-1.3); GLUCOSE 121 mg/dL (74-106); MAGNESIUM 2.1 mg/dL (1.8-2.4); PHOSPHORUS 1.9 mg/dL (2.5-4.9); SODIUM SERUM 144 mmol/L (136-145); TOTAL PROTEIN, SERUM 5.9 g/dL (6.4-8.2); UREA NITROGEN, BLOOD 18 mg/dL (7-18)
--- NOTE | 2017-07-06 07:53 | NUR ---
MS RN OPENING NOTES. RECEIVED PT A&0X3 AWAKE AND RESTING IN BED. PT WITH O2 AT 2LPM VIA NC WITH NO SOB. PT WITH NG TUBE SET TO L.I.S PULLING YELLOWISH LIQUID. PT REPORTING NO PAIN AT THIS TIME. PT WITH IVCX2 AT R AC AND R HAND INTACT AND OPERATIONAL. PT BED IN LOWEST LOCKED POSITION WITH HANDRAILSX2 AND CALL MENDOZA WITHIN REACH. PT BRIEFED ON TODAY'S POC AND IS WITHOUT CONCERN OR COMPLAINT AT THIS TIME.
[2017-07-06 08:00] VITALS: BP 158/85
[2017-07-06] MEDS: GABAPENTIN 300 MG CAPSULE PO SCH ×2 (08:31→16:08)
[2017-07-06] MEDS: PANTOPRAZOLE 40 MG VIAL IV SCH ×2 (08:31→21:37)
[2017-07-06] MEDS: ACETAMINOPHEN 325 MG TABLET PO SCH ×2 (08:31→16:08)
[2017-07-06] MEDS: IBUPROFEN 400 MG TABLET PO SCH ×2 (08:31→16:08)
[2017-07-06] MEDS: ASPIRIN EC 81 MG TABLET.DR PO SCH (08:32)
[2017-07-06] MEDS: NYSTATIN (PYXIS) 500,000 UNIT/5 ML ORAL.SUSP PO SCH ×3 (08:32→17:51)
[2017-07-06] MEDS: AMLODIPINE BESYLATE 5 MG TABLET PO SCH (08:32)
[2017-07-06] MEDS: LISINOPRIL (10MG) 10 MG TABLET PO SCH (08:32)
[2017-07-06] MEDS: PREGABALIN 25 MG CAPSULE PO SCH ×2 (08:32→16:08)
[2017-07-06] MEDS: IV NS 0.9% 1,000 ML IV PRN (11:55)
--- NOTE | 2017-07-06 12:00 | NUR ---
RN NOTES. CONFIRMED WITH MD THAT PT HAS NO DIET BUT IS ALLOWED ICE CHIPS, JUICE AND CLEAR FLUIDS FOR ORAL COMFORT AND NGT COMFORT. NGT SUCTION IS TO BE TURNED OFF FOR 1HOUR AFTER PO MEDS.
--- NOTE | 2017-07-06 12:30 | NUR ---
RN NOTES. PT SEEN BY PT.
--- NOTE | 2017-07-06 13:28 | NUR ---
RN NOTES. PHARMACY CONTACTED TO DELIVER 1300 AB.
[2017-07-06] MEDS ORDERED: Sodium Phosphate 15 MMOL in IV D5W 250 ML IV ONE (14:30)
[2017-07-06 16:00] VITALS: BP 154/92
[2017-07-06] MEDS: METRONIDAZOLE 500MG/ NS 100ML 500 MG in PREMIX 1 EA IV SCH ×2 (16:07→21:37)
--- NOTE | 2017-07-06 18:20 | NUR ---
MS RN CLOSING NOTES. PT A&0X3, RESTING IN BED AND DOZING INTERMITTENTLY. PT WITH NC 2/LPM AND NO SOB. PT REPORTING NO PAIN. PT WITH IVC AT R HAND G#20 AND R AC G#20 INTACT AND OPERATIONAL. PT GÓMEZ OPERATIONAL DRAINING DENI YELLOW URINE. PT BED IN LOWEST LOCKED POSITION WITH HANDRAILSX2 AND CALL MENDOZA WITH REACH. ALL DAY NURSE DUTIES ATTENDED TO. PT REPORTING HAVING HAD A GOOD DAY AND IS WITHOUT CONCERN OR COMPLAINT AT THIS TIME. Addendum: 07/06/17 at 1823 by ADAM MAYA RN NGT SET TO LIS WITH 650 IN COLLECTION.
--- NOTE | 2017-07-06 19:30 | NUR ---
RN NOTES RECEIVED PT. AMBULATE WITH WALKER, WITH ASSISTANCE OF HER DAUGHTER, F/C DRAINING TEA COLORED URINE, A/OX4, UKRAINIAN/TELUGU SPEAKING, ON NGT, LOW INTERMITTENT SUCTION, DRAINING BROWNISH OUTPUT, DRESSING ON THE ABDOMEN DRY AND INTACT, DENIES PAIN, NO SOB, CALL LIGHT WITHIN REACH, SIDERAILS UPX2 CONTINUE TO MONITOR
[2017-07-06 20:00] VITALS: BP 146/65
[2017-07-06] MEDS: ENOXAPARIN SODIUM 40 MG/0.4 ML DISP.SYRIN SQ SCH (22:29)
[2017-07-07] MEDS: PIPERACILLIN /TAZOBACTAM 2.25 G in IV D5W 50 ML IV SCH ×5 (00:01→23:28)
[2017-07-07] MEDS: IBUPROFEN 400 MG TABLET PO SCH ×4 (00:01→23:28)
[2017-07-07] MEDS: BLOOD SUGAR DIAGNOSTIC 1 EACH STRIP IN SCH ×5 (00:01→23:39)
[2017-07-07] MEDS: ACETAMINOPHEN 325 MG TABLET PO SCH ×4 (00:01→23:28)
[2017-07-07] MEDS: GABAPENTIN 300 MG CAPSULE PO SCH ×4 (00:01→23:28)
[2017-07-07] MEDS: METRONIDAZOLE 500MG/ NS 100ML 500 MG in PREMIX 1 EA IV SCH ×3 (04:43→21:00)
--- NOTE | 2017-07-07 06:51 | NUR ---
RN NOTES AWAKE MORNING CARE RENDERED, NG-TUBE IN PLACE, F/C IN PLACE, NO N/V, DENIES PAIN, NO , CALL LIGHT WITHIN REACH, SIDERAILSUPX2, PT. NEEDS ATTENDED
--- NOTE | 2017-07-07 07:30 | NUR ---
ms rn initial notes Received patient in bed, awake, head of bed elevated, no SOB or distress noted. On room air. NGT attached to low intermittent suctioning. IV intact and patent with IVF infusing well. Alert and oriented x 4, verbally responsive and able to make needs known. Kept patient clean and comfortable in bed, call light with in patient reach, will continue to monitor accordingly.
[2017-07-07 08:00] VITALS: BP_SYST 135; BP_SYST 146; BP_DIAS 68; BP_DIAS 71
[2017-07-07 08:14] LABS: EOSINOPHILS % (AUTO) 0.7 % (0.0-6.0); HEMATOCRIT 42 % (33-45); HEMOGLOBIN 13.5 g/dL (11.5-14.8); MEAN CORPUSCULAR HEMOGLOBIN 28 PG (26.0-33.0); MEAN CORPUSCULAR HGB CONC 32 g/dl (31.0-36.0); MEAN CORPUSCULAR VOLUME 87 fL (82-100); MONOCYTES % (AUTO) 4.3 % (2.0-12.0); PLATELET COUNT (AUTO) 265 /CMM (150-450); RDW COEFFICIENT OF VARIATION 15.8 (11.5-15.0); RED BLOOD CELL COUNT(AUTO) 4.84 MIL/uL (4.0-5.2)
[2017-07-07 08:15] LABS: EOSINOPHILS # (AUTO) 0.1 /CMM (0.0-0.7); LYMPHOCYTES # (AUTO) 1.4 /CMM (0.8-4.8); MONOCYTES # (AUTO) 0.5 /CMM (0.1-1.30)
[2017-07-07 08:17] LABS: CALCIUM, SERUM 8.1 mg/dL (8.5-10.1); CARBON DIOXIDE 23 mmol/L (21-32); CHLORIDE 110 mmol/L (98-107); CREATININE 0.7 mg/dL (0.6-1.3); GLUCOSE 122 mg/dL (74-106); MAGNESIUM 1.9 mg/dL (1.8-2.4); PHOSPHORUS 1.8 mg/dL (2.5-4.9); POTASSIUM 3.3 mmol/L (3.5-5.1); SODIUM SERUM 144 mmol/L (136-145); UREA NITROGEN, BLOOD 16 mg/dL (7-18)
[2017-07-07] MEDS: PANTOPRAZOLE 40 MG VIAL IV SCH ×2 (08:40→21:00)
[2017-07-07] MEDS: NYSTATIN (PYXIS) 500,000 UNIT/5 ML ORAL.SUSP PO SCH ×3 (08:40→16:04)
[2017-07-07] MEDS: PREGABALIN 25 MG CAPSULE PO SCH ×2 (08:41→16:04)
[2017-07-07] MEDS: ASPIRIN EC 81 MG TABLET.DR PO SCH (08:41)
[2017-07-07] MEDS: LISINOPRIL (10MG) 10 MG TABLET PO SCH (08:42)
[2017-07-07] MEDS: AMLODIPINE BESYLATE 5 MG TABLET PO SCH (08:42)
[2017-07-07] MEDS: POTASSIUM CL. PREMIX PERIPHER. 50 ML IV SCH ×2 (12:00→13:14)
[2017-07-07] MEDS: INSULIN REGULAR, HUMAN 100 UNIT/ML 3 ML VIAL SQ PRN ×2 (12:05→17:16)
--- NOTE | 2017-07-07 14:00 | NUR ---
MS RN NOTES Received a call from Dr. Hernandez regarding patient NGT and ordered okay to discontinue NGT. All orders carried out and noted. Will continue to monitor accordingly.
[2017-07-07 16:00] VITALS: BP 141/71
[2017-07-07] MEDS ORDERED: NEUTRA PHOS 1 POWD.PACKET NG ONE (16:00)
[2017-07-07 18:00] VITALS: BP 145/76
--- NOTE | 2017-07-07 19:19 | NUR ---
ms rn closing notes All needs provided, attended, and anticipated. Kept patient clean and comfortable. Endorsed to next shift RN to continue care.
--- NOTE | 2017-07-07 19:30 | NUR ---
RN NOTES RECEIVED PATIENT IN BED AWAKE, AO X 3, ABLE TO MAKE NEEDS KNOWN. NO ACUTE DISTRESS NOTED; DENIES ANY PAIN AT THIS TIME. IV SITES PATENT, INTACT; FLUSHED. SAFETY REMINDERS GIVEN. ON LOW BED WITH BILATERAL UPPER SIDE RAILS UP. CALL BUTTON WITHIN EASY REACH. WILL CONTINUE TO MONITOR.
[2017-07-07 20:00] VITALS: BP 138/71
[2017-07-07] MEDS: ENOXAPARIN SODIUM 40 MG/0.4 ML DISP.SYRIN SQ SCH (23:29)
[2017-07-08] MEDS: METRONIDAZOLE 500MG/ NS 100ML 500 MG in PREMIX 1 EA IV SCH ×3 (05:10→21:30)
[2017-07-08] MEDS: IV NS 0.9% 1,000 ML IV PRN (05:10)
--- NOTE | 2017-07-08 06:00 | NUR ---
RN NOTES PATIENT ASLEEP IN BED; EASILY AROUSABLE. RESPIRATION EVEN. DENIES ANY PAIN AT THIS TIME. SYMPTOMS OF HYPER/HYPOGLYCEMIA. DUE MEDS GIVEN WITH NO ASE NOTED. KEPT CLEAN AND DRY. SAFETY PRECAUTIONS AND COMFORT MEASURES IN PLACE. WILL GIVE REPORT TO DAY SHIFT FOR CONTINUITY OF CARE.
[2017-07-08] MEDS: BLOOD SUGAR DIAGNOSTIC 1 EACH STRIP IN SCH ×4 (06:16→23:51)
[2017-07-08] MEDS: PIPERACILLIN /TAZOBACTAM 2.25 G in IV D5W 50 ML IV SCH ×4 (06:16→23:50)
--- NOTE | 2017-07-08 07:27 | NUR ---
RN MS INITIAL NOTES Received pt laying in bed comfortably. a/o x3, respirations are even and unlabored, not in any acute distress noted. Denies any pain at this time, w/ no facial grimacing noted. Reminded pt to use call light when assistance is needed, call light is left within reach. Will continue to monitor pt throughtout shift.
[2017-07-08 08:00] VITALS: BP 141/62
[2017-07-08 08:09] LABS: BASOPHILS % (AUTO) 0.2 % (0.0-2.0); EOSINOPHILS # (AUTO) 0.2 /CMM (0.0-0.7); EOSINOPHILS % (AUTO) 2.3 % (0.0-6.0); HEMATOCRIT 40 % (33-45); HEMOGLOBIN 13.1 g/dL (11.5-14.8); LYMPHOCYTES # (AUTO) 1.6 /CMM (0.8-4.8); LYMPHOCYTES % (AUTO) 16.7 % (20.0-44.0); MEAN CORPUSCULAR HEMOGLOBIN 28 PG (26.0-33.0); MEAN CORPUSCULAR HGB CONC 33 g/dl (31.0-36.0); MEAN CORPUSCULAR VOLUME 86 fL (82-100); MONOCYTES # (AUTO) 0.6 /CMM (0.1-1.30); MONOCYTES % (AUTO) 6.7 % (2.0-12.0); NEUTROPHILS # (AUTO) 7.2 /CMM (1.8-8.9); NEUTROPHILS % (AUTO) 74.1 % (43.0-81.0); PLATELET COUNT (AUTO) 342 /CMM (150-450); RDW COEFFICIENT OF VARIATION 15.6 (11.5-15.0); RED BLOOD CELL COUNT(AUTO) 4.59 MIL/uL (4.0-5.2); WHITE BLOOD COUNT (AUTO) 9.7 K/uL (4.3-11.0)
[2017-07-08 08:19] LABS: CALCIUM, SERUM 8.1 mg/dL (8.5-10.1); CARBON DIOXIDE 23 mmol/L (21-32); CHLORIDE 113 mmol/L (98-107); CREATININE 0.6 mg/dL (0.6-1.3); GLUCOSE 123 mg/dL (74-106); MAGNESIUM 1.9 mg/dL (1.8-2.4); PHOSPHORUS 1.8 mg/dL (2.5-4.9); POTASSIUM 3.2 mmol/L (3.5-5.1); SODIUM SERUM 146 mmol/L (136-145); UREA NITROGEN, BLOOD 16 mg/dL (7-18)
[2017-07-08] MEDS ORDERED: DIATR MEGLU/DIATRIZOATE SODIUM 120 ML BOTTLE (GASTROGRAPHIN) ONE ×2 (09:01→09:32)
[2017-07-08] MEDS: GABAPENTIN 300 MG CAPSULE PO SCH ×3 (10:01→23:50)
[2017-07-08] MEDS: LISINOPRIL (10MG) 10 MG TABLET PO SCH (10:02)
[2017-07-08] MEDS: PREGABALIN 25 MG CAPSULE PO SCH ×2 (10:04→16:58)
[2017-07-08] MEDS: AMLODIPINE BESYLATE 5 MG TABLET PO SCH (10:04)
[2017-07-08] MEDS: PANTOPRAZOLE 40 MG VIAL IV SCH ×2 (10:04→21:31)
[2017-07-08] MEDS: IBUPROFEN 400 MG TABLET PO SCH ×3 (10:04→23:51)
[2017-07-08] MEDS: ASPIRIN EC 81 MG TABLET.DR PO SCH (10:05)
[2017-07-08] MEDS: ACETAMINOPHEN 325 MG TABLET PO SCH ×3 (10:05→23:51)
[2017-07-08] MEDS: NYSTATIN (PYXIS) 500,000 UNIT/5 ML ORAL.SUSP PO SCH ×3 (10:05→16:57)
[2017-07-08] MEDS: POTASSIUM CL. PREMIX PERIPHER. 50 ML IV SCH ×4 (10:58→16:57)
[2017-07-08 16:00] VITALS: BP 140/70
[2017-07-08] MEDS ORDERED: K PHOS NEUTRAL 250 MG TABLET PO ONE (16:00)
[2017-07-08] MEDS ORDERED: IV 1/2NS 1000 ML 1,000 ML IV PRN (17:30)
--- NOTE | 2017-07-08 18:38 | NUR ---
RN MS Closing Notes All needs met and rendered. Continues to be a/o x3, respirations are even and unlabored, not in any acute distress noted. Pt denied any pain throughout shift. Pt able to ambulate w/ FWW with supervision. Pt able to reposition self using side rails. Peripheral IV site to Left forearm, gauge 22, dressing kept clean and dry and intact. Relayed GI seriess xray results to Dr. sanders w/ orders to change diet to full liquids. Will endorse to next shift for continuity of care.
--- NOTE | 2017-07-08 19:50 | NUR ---
MS RN NOTE: PATIENT RESTING IN BED, NO ACUTE DISTRESS NOTED, FAMILY AT BEDSIDE. BREATHING EVEN AND UNLABORED, NO SOB NOTED. IV TO LFA IN PLACE, INFUSING 1/2 NS AT 60ML/HR. NO S/S OF HYPER/HYPOGLYCEMIA NOTED. BED LOCKED AND IN LOWEST POSITION, CALL LIGHT IN REACH. WILL CONTINUE TO MONITOR.
[2017-07-08 20:51] VITALS: BP 151/87
[2017-07-08] MEDS: ENOXAPARIN SODIUM 40 MG/0.4 ML DISP.SYRIN SQ SCH (23:50)
--- NOTE | 2017-07-09 00:05 | NUR ---
MS RN NOTE: PATIENT BLOOD SUGAR LEVEL 121 MG/DL, NO INSULIN NEEDED PER SLIDING SCALE. NO S/S HYPER/HYPOGLYCEMIA NOTED. WILL CONTINUE TO MONITOR.
[2017-07-09] MEDS: BLOOD SUGAR DIAGNOSTIC 1 EACH STRIP IN SCH ×2 (06:30→12:20)
[2017-07-09] MEDS: PIPERACILLIN /TAZOBACTAM 2.25 G in IV D5W 50 ML IV SCH ×2 (06:30→12:20)
--- NOTE | 2017-07-09 06:30 | NUR ---
MS RN NOTE: PATIENT RESTING IN BED, NO ACUTE DISTRESS NOTED. BREATHING EVEN AND UNLABORED, NO SOB NOTED. IV TO LFA IN PLACE, INFUSING 1/2 NS AT 60ML/HR. BLOOD SUGAR LEVEL 111MG/DL, NO INSULIN NEEDED PER SLIDING SCALE, NO S/S OF HYPER/HYPOGLYCEMIA NOTED. BED LOCKED AND IN LOWEST POSITION, CALL LIGHT IN REACH. WILL ENDORSE TO DAY NURSE TO CONTINUE WITH PLAN OF CARE.
--- NOTE | 2017-07-09 07:32 | NUR ---
RN OPEN NOTES RECEIVED REPORT FROM TRUCK DESPATCHER NURSE. PATIENT IS IN BED, ALERT AND ORIENTED TO NAME PLACE AND TIME. NO SIGNS AND SYMPTOMS OF DISTRESS. BED IN LOW POSITION, LOCKED AND TWO SIDE RAILS ARE UP. CALL LIGHT WITHIN REACH FOR SAFETY. WILL CONTINUE TO ASSESS AND MONITOR PATIENT THROUGH OUT MY SHIFT
[2017-07-09 08:00] VITALS: BP 159/78
[2017-07-09] MEDS: PREGABALIN 25 MG CAPSULE PO SCH (08:19)
[2017-07-09] MEDS: LISINOPRIL (10MG) 10 MG TABLET PO SCH (08:19)
[2017-07-09] MEDS: GABAPENTIN 300 MG CAPSULE PO SCH ×2 (08:20→15:44)
[2017-07-09] MEDS: ACETAMINOPHEN 325 MG TABLET PO SCH ×2 (08:20→15:44)
[2017-07-09] MEDS: IBUPROFEN 400 MG TABLET PO SCH ×2 (08:20→15:44)
[2017-07-09 08:21] VITALS: BP 159/78
[2017-07-09] MEDS: NYSTATIN (PYXIS) 500,000 UNIT/5 ML ORAL.SUSP PO SCH ×2 (08:21→12:23)
[2017-07-09] MEDS: AMLODIPINE BESYLATE 5 MG TABLET PO SCH (08:21)
[2017-07-09] MEDS: PANTOPRAZOLE 40 MG VIAL IV SCH (08:22)
[2017-07-09 08:51] LABS: BASOPHILS % (AUTO) 0.2 % (0.0-2.0); EOSINOPHILS # (AUTO) 0.3 /CMM (0.0-0.7); EOSINOPHILS % (AUTO) 3.8 % (0.0-6.0); HEMATOCRIT 40 % (33-45); HEMOGLOBIN 13.4 g/dL (11.5-14.8); LYMPHOCYTES % (AUTO) 21.7 % (20.0-44.0); MEAN CORPUSCULAR HEMOGLOBIN 29 PG (26.0-33.0); MEAN CORPUSCULAR HGB CONC 33 g/dl (31.0-36.0); MEAN CORPUSCULAR VOLUME 86 fL (82-100); MONOCYTES # (AUTO) 0.6 /CMM (0.1-1.30); MONOCYTES % (AUTO) 6.6 % (2.0-12.0); NEUTROPHILS # (AUTO) 6.2 /CMM (1.8-8.9); NEUTROPHILS % (AUTO) 67.7 % (43.0-81.0); PLATELET COUNT (AUTO) 419 /CMM (150-450); RDW COEFFICIENT OF VARIATION 15.5 (11.5-15.0); RED BLOOD CELL COUNT(AUTO) 4.68 MIL/uL (4.0-5.2); WHITE BLOOD COUNT (AUTO) 9.1 K/uL (4.3-11.0)
[2017-07-09] MEDS ORDERED: ASPIRIN EC 325 MG TABLET.DR PO SCH (09:00)
[2017-07-09 09:08] LABS: CALCIUM, SERUM 8.2 mg/dL (8.5-10.1); CARBON DIOXIDE 23 mmol/L (21-32); CHLORIDE 113 mmol/L (98-107); CREATININE 0.7 mg/dL (0.6-1.3); GLUCOSE 114 mg/dL (74-106); PHOSPHORUS 2.3 mg/dL (2.5-4.9); POTASSIUM 3.2 mmol/L (3.5-5.1); SODIUM SERUM 146 mmol/L (136-145); UREA NITROGEN, BLOOD 12 mg/dL (7-18)
--- NOTE | 2017-07-09 09:20 | NUR ---
PATIENT TRANSFERRED TO ROOM 205-2
[2017-07-09] MEDS ORDERED: PANT40TA2 PO (14:32)
[2017-07-09] MEDS ORDERED: HYDR-552 PO (14:32)
[2017-07-09] MEDS ORDERED: AMOX-430 PO (14:35)
--- NOTE | 2017-07-09 14:49 | NUR ---
OFFERED FLU VACCINE PRIOR TO DISCHARGE. PATIENT REFUSED AND SAID THAT SHE WILL RECEIVE IT ELSEWHERE
[2017-07-09] MEDS ORDERED: K PHOS NEUTRAL 250 MG TABLET PO ONE (15:30)
[2017-07-09] MEDS ORDERED: POTASSIUM CHLORIDE 20 MEQ TAB.PRT.SR PO ONE (15:30)
--- NOTE | 2017-07-09 15:45 | NUR ---
ALL INSTRUCTION GAVE TO PATIENT DAUGHTER OVER THE PHONE. PATIENT'S DAUGHTER VERBALIZED UNDERSTANDING
--- NOTE | 2017-07-09 16:05 | NUR ---
JUNIOR BUYER NOTES PATIENT DISCHARGE ORDER RECEIVED AND CARRIED OUT. NO NEW CONCERNS UPON DISCHARGE. PATIENT IS LEAVING IN A STABLE CONDITION. NO SIGNS AND SYMPTOMS OF DISTRESS. DENIED PAIN. REFUSED FLU VACCINE AT THIS TIME AND WOULD LIKE TO RECEIVE IT ELSE WHERE. ALL DISCHARGE INSTRUCTION EXPLAINED TO PATIENT AND DAUGHTER. BOTH VERBALIZED UNDERSTANDING. ALL PERSONAL BELONGING WITH PATIENT AT TIME OF DISCHARGE. PATIENT SIGNED BOTH BELONGING FORM AND INSTRUCTION FORMS; BOTH PLACED IN THE CHART. NEW PRESCRIPTION GAVE TO PATIENT. PATIENT ADVISED TO FOLLOW UP WITH THE SURGEON AND THE ID DOCTOR AFTER [address] HUYNH AND DR AGUILAR OFFICE NUMBER AND ADDRESS. IV SITE REMOVED. ID BANDS REMOVED. PATIENT PICKED UP BY HER SON AND A PRIVATE CAR. PATIENT DISCHARGED HOME. SKIN IN INTACT. REFUSED DRESSING CHANGE SO INCISION SITE PICTURE COULDN'T BE TAKEN.
== END 2017-07-09 16:05 | disposition home or self-care (01) | DRG 356 ==
LOC: ER 19:08 → MEDSG2 21:14 → MED 07-03 18:15 → MEDSG2 07-09 09:09
PROC: 0DC68ZZ Extirpation of Matter from Stomach, Via Natural or Artificial Opening Endoscopic (ICD-10-PCS; principal; 2017-07-03)
PROC: 0WJJ0ZZ Inspection of Pelvic Cavity, Open Approach (ICD-10-PCS; 2017-07-03)
DX: K31.5 Obstruction of duodenum (principal); A41.9 Sepsis, unspecified organism; K82.3 Fistula of gallbladder; K81.0 Acute cholecystitis; B37.0 Candidal stomatitis; E83.39 Other disorders of phosphorus metabolism; E44.1 Mild protein-calorie malnutrition; Z68.41 Body mass index [BMI] 40.0-44.9, adult; N39.0 Urinary tract infection, site not specified; I48.91 Unspecified atrial fibrillation; K83.8 Other specified diseases of biliary tract; E11.9 Type 2 diabetes mellitus without complications; B96.1 Klebsiella pneumoniae [K. pneumoniae] as the cause of diseases classified elsewhere; E66.9 Obesity, unspecified; E78.5 Hyperlipidemia, unspecified; E87.6 Hypokalemia; I10 Essential (primary) hypertension; K76.0 Fatty (change of) liver, not elsewhere classified; Z79.899 Other long term (current) drug therapy; J06.9 Acute upper respiratory infection, unspecified; R74.0 Nonspecific elevation of levels of transaminase and lactic acid dehydrogenase [LDH]; K82.8 Other specified diseases of gallbladder; K66.0 Peritoneal adhesions (postprocedural) (postinfection); I47.9 Paroxysmal tachycardia, unspecified
CPT/HCPCS: 36415; 71010-TC; 74246-TC; 76705-TC; 78226; 80048-TC; 80053-TC; 80061-TC; 80076-TC; 81000-TC; 82962-TC; 83605-TC; 83690-TC; 83735-TC; 84100-TC; 84443-TC; 85025-TC; 85730-TC; 86850-TC; 87040-TC; 87070-TC; 87081-TC; 87086-TC; 87186-TC; 87400; 88300-TC; 93307-TC; 97116-TC; 97530-TC; A4216; A4606; A6209; A6402; A9537; A9563; C9113; J0330; J1100; J1170; J1650; J1815; J1885; J2270; J2405; J2543; J2704; J2710; J3010; J3475; J3480; J3490; J7030; J7060; J7120; Q9963; Z7610

== ENCOUNTER 2018-04-02 12:31 | Outpatient (CLI) | payer MEDICARE, OTHER ==
[~2018-04-02 12:31] MED LIST changes: +AMOX-430 PO; -AZIT250T PO; -CELE200C PO; +HYDR-552 PO; +PANT40TA2 PO; -SIMV40TA2 PO
== END 2018-04-02 23:59 | disposition home or self-care (01) ==
LOC: RAD 12:31
PROVIDERS: ATTEND Surgery
DX: Z01.818 Encounter for other preprocedural examination (principal); I70.0 Atherosclerosis of aorta; I11.9 Hypertensive heart disease without heart failure; J98.11 Atelectasis; E11.9 Type 2 diabetes mellitus without complications
CPT/HCPCS: 71046

== ENCOUNTER 2018-04-09 05:38 | Inpatient (IN) | payer MEDICARE, OTHER ==
[~2018-04-09] VITALS: Ht 172.7 cm; Wt 76.2 kg
[~2018-04-09 05:38] MED LIST changes: +ANESTHESIA TRAY IN PYXIS 1 EA TRAY MC ONE; +BUPIVACAINE MPF 0.5% W/EPI INJ 30 ML VIAL ONE
[2018-04-09] MEDS ORDERED: LIDOCAINE 1% INJ 50 ML MDV IJ ONE ×2 (06:53→08:26)
[2018-04-09] MEDS ORDERED: ANESTHESIA TRAY IN PYXIS 1 EA TRAY MC ONE (06:53)
[2018-04-09] MEDS ORDERED: BUPIVACAINE 0.5 % PF 150 MG/30 ML VIAL ONE ×2 (06:53→08:21)
[2018-04-09] MEDS ORDERED: LIDOCAINE 1%-EPI 1:100,000 20 ML VIAL ONE (08:21)
[2018-04-09] MEDS ORDERED: BUPIVACAINE MPF W/EPI 0.25% 30 ML VIAL ONE (08:26)
--- NOTE | 2018-04-09 10:00 | NUR ---
ms rn received a new admission for or, s/p hernia repair by , w/ dressing dry and intact at surgical site. denies pain at this time, will monitor patient.
[2018-04-09] MEDS ORDERED: HYDROCODONE/APAP 10/325MG 1 EA TABLET PO PRN (11:00)
[2018-04-09] MEDS ORDERED: IV LR 1000 ML 1,000 ML IV PRN (11:00)
[2018-04-09] MEDS ORDERED: HYDROMORPHONE INJ 2 MG/ML DISP.SYRIN IV PRN (11:00)
[2018-04-09] MEDS ORDERED: ONDANSETRON 4 MG TAB.RAPDIS PO PRN (11:00)
--- NOTE | 2018-04-09 11:00 | NUR ---
ms dimas breakfast served, due meds given,tolerated well.
[2018-04-09] MEDS: IBUPROFEN 400 MG TABLET PO SCH ×2 (11:26→18:56)
[2018-04-09] MEDS: ACETAMINOPHEN 325 MG TABLET PO SCH ×2 (11:26→18:56)
[2018-04-09] MEDS: GABAPENTIN 300 MG CAPSULE PO SCH ×2 (11:27→18:56)
[2018-04-09] MEDS ORDERED: NITROGLYCERIN 0.4 MG/TAB BOTTLE SL PRN (13:00)
[2018-04-09] MEDS ORDERED: ASPIRIN 325 MG TABLET PO SCH (13:22)
[2018-04-09] MEDS ORDERED: PREGABALIN 25 MG CAPSULE PO SCH (13:30)
[2018-04-09 16:00] VITALS: BP 138/66
--- NOTE | 2018-04-09 19:02 | NUR ---
MS RN READY TO BE DISCHARGE, NO DISTRESS NOTED, INSTRUCTIONS /RX GIVEN TO DAUGHTER,ALL NEEDS ATTENDED.
[2018-04-10] MEDS ORDERED: LISINOPRIL (10MG) 10 MG TABLET PO SCH (09:00)
[2018-04-10] MEDS ORDERED: ATORVASTATIN 40 MG TABLET PO SCH (09:00)
[2018-04-10] MEDS ORDERED: PANTOPRAZOLE 40 MG TABLET.DR PO SCH (09:00)
[2018-04-10] MEDS ORDERED: AMLODIPINE BESYLATE 5 MG TABLET PO SCH (09:00)
[2018-04-10] MEDS ORDERED: ASPIRIN 325 MG TABLET PO SCH (11:00)
== END 2018-04-09 19:35 | disposition home or self-care (01) | DRG 355 ==
LOC: DS 05:38 → MED 10:23
PROVIDERS: ADMIT Surgery; ATTEND Surgery
PROC: 0WUF0JZ Supplement Abdominal Wall with Synthetic Substitute, Open Approach (ICD-10-PCS; principal; 2018-04-09 07:30)
DX: K43.0 Incisional hernia with obstruction, without gangrene (principal); I10 Essential (primary) hypertension; E11.65 Type 2 diabetes mellitus with hyperglycemia; E78.5 Hyperlipidemia, unspecified; E66.9 Obesity, unspecified; Z68.25 Body mass index [BMI] 25.0-25.9, adult
CPT/HCPCS: 71045-TC; 82962-TC; J3490; J7120; Z7610

== ENCOUNTER 2019-06-21 18:24 | Emergency (ER) | payer MEDICARE, OTHER ==
[~2019-06-21] VITALS: Ht 172.7 cm; Wt 86.2 kg
[~2019-06-21 18:24] MED LIST changes: -ANESTHESIA TRAY IN PYXIS 1 EA TRAY MC ONE; -BUPIVACAINE MPF 0.5% W/EPI INJ 30 ML VIAL ONE; +HYDR-4384 PO; -HYDR-552 PO; +LISI-605 PO; -LISI10TA59 PO
--- NOTE | 2019-06-21 18:35 | NUR ---
c/o hypertension today 180/100, took her BP meds and still high reading, pt aaox4, -sob, pt on montor, vss, pending md pedroza
[2019-06-21] MEDS ORDERED: CLONIDINE HCL 0.1 MG TABLET ONE (18:55)
[2019-06-21 18:58] LABS: BASOPHILS # (AUTO) 0.1 /CMM (0.0-0.2); BASOPHILS % (AUTO) 0.5 % (0.0-2.0); EOSINOPHILS % (AUTO) 0.6 % (0.0-6.0); HEMATOCRIT 46 % (33-45); LYMPHOCYTES # (AUTO) 1.5 /CMM (0.8-4.8); LYMPHOCYTES % (AUTO) 14.6 % (20.0-44.0); MEAN CORPUSCULAR HGB CONC 33 g/dl (31.0-36.0); MEAN CORPUSCULAR VOLUME 88 fL (82-100); MONOCYTES # (AUTO) 0.7 /CMM (0.1-1.30); MONOCYTES % (AUTO) 6.5 % (2.0-12.0); NEUTROPHILS # (AUTO) 8.1 /CMM (1.8-8.9); NEUTROPHILS % (AUTO) 77.8 % (43.0-81.0); PLATELET COUNT (AUTO) 304 /CMM (150-450); RED BLOOD CELL COUNT(AUTO) 5.18 MIL/uL (4.0-5.2); WHITE BLOOD COUNT (AUTO) 10.5 K/uL (4.3-11.0)
[2019-06-21] MEDS ORDERED: CLONIDINE HCL 0.1 MG TABLET PO ONE (19:00)
[2019-06-21 19:14] LABS: CALCIUM, SERUM 9.6 mg/dL (8.5-10.1); CARBON DIOXIDE 27 mmol/L (21-32); CHLORIDE 103 mmol/L (98-107); CREATININE 1.1 mg/dL (0.6-1.3); GLUCOSE 162 mg/dL (74-106); POTASSIUM 4.2 mmol/L (3.5-5.1); SODIUM SERUM 139 mmol/L (136-145); UREA NITROGEN, BLOOD 21 mg/dL (7-18)
[2019-06-21 19:50] VITALS: BP 164/90
--- NOTE | 2019-06-21 20:15 | NUR ---
Patient discharged to home in stable condition. Written and verbal after care instructions given. Patient verbalizes understanding of instruction. IV removed. Catheter intact and site benign. Pressure and 4x4 applied to site. No bleeding noted.
== END 2019-06-21 20:17 | disposition home or self-care (01) ==
LOC: ER 18:31
DX: I10 Essential (primary) hypertension (principal); R42 Dizziness and giddiness; E11.9 Type 2 diabetes mellitus without complications; F10.10 Alcohol abuse, uncomplicated; Y90.9 Presence of alcohol in blood, level not specified; Z79.899 Other long term (current) drug therapy; Z79.82 Long term (current) use of aspirin
CPT/HCPCS: 36415; 71045-TC; 80048-TC; 84484-TC; 85025-TC

== ENCOUNTER 2020-11-04 18:54 | Emergency (ER) | payer MEDICARE, OTHER ==
[~2020-11-04] VITALS: Ht 165.1 cm; Wt 108.9 kg
[~2020-11-04 18:54] MED LIST changes: -LISI-605 PO; +LISI10TA30 PO
[2020-11-04 19:07] VITALS: BP 165/96
[2020-11-04] MEDS ORDERED: AMLO-213 PO (19:19)
--- NOTE | 2020-11-04 19:30 | NUR ---
Patient discharged to home in stable condition. Written and verbal after care instructions given. Patient verbalizes understanding of instruction. Pt ambulatory with a steady gait
== END 2020-11-04 19:52 | disposition home or self-care (01) ==
LOC: ER 18:56
DX: I10 Essential (primary) hypertension (principal); E11.9 Type 2 diabetes mellitus without complications; Z79.899 Other long term (current) drug therapy

== ENCOUNTER 2022-03-30 19:41 | Emergency (ER) | payer MEDICARE, OTHER ==
[~2022-03-30] VITALS: Ht 165.1 cm; Wt 104.3 kg
[~2022-03-30 19:41] MED LIST changes: +AMLO-213 PO
[2022-03-30] MEDS ORDERED: MECLIZINE HCL 12.5 MG TABLET PO ONE (20:30)
[2022-03-30] MEDS ORDERED: LABETALOL HCL IV 100MG VIAL IV ONE (20:30)
[2022-03-30] MEDS ORDERED: LABETALOL HCL IV 100MG VIAL ONE (20:34)
[2022-03-30] MEDS ORDERED: MECLIZINE HCL 25 MG TABLET ONE (20:35)
[2022-03-30 21:21] LABS: BASOPHILS # (AUTO) 0.1 K/uL (0.0-0.2); BASOPHILS % (AUTO) 0.5 % (0.0-2.0); EOSINOPHILS % (AUTO) 0.5 % (0.0-6.0); HEMATOCRIT 46 % (33-45); HEMOGLOBIN 15.2 g/dL (11.5-14.8); LYMPHOCYTES # (AUTO) 1.3 K/uL (0.8-4.8); LYMPHOCYTES % (AUTO) 12.4 % (20.0-44.0); MEAN CORPUSCULAR HGB CONC 33 g/dl (31.0-36.0); MEAN CORPUSCULAR VOLUME 87 fL (82-100); MONOCYTES # (AUTO) 0.5 K/uL (0.1-1.30); NEUTROPHILS # (AUTO) 8.8 K/uL (1.8-8.9); NEUTROPHILS % (AUTO) 81.6 % (43.0-81.0); PLATELET COUNT (AUTO) 253 K/uL (150-450); RED BLOOD CELL COUNT(AUTO) 5.31 MIL/uL (4.0-5.2); WHITE BLOOD COUNT (AUTO) 10.7 K/uL (4.3-11.0)
[2022-03-30 21:40] LABS: CALCIUM, SERUM 9.2 mg/dL (8.5-10.1); CARBON DIOXIDE 25 mmol/L (21-32); CHLORIDE 103 mmol/L (98-107); CREATININE 0.7 mg/dL (0.6-1.3); GLUCOSE 143 mg/dL (74-106); POTASSIUM 5.7 mmol/L (3.5-5.1); SODIUM SERUM 137 mmol/L (136-145); UREA NITROGEN, BLOOD 14 mg/dL (7-18)
[2022-03-30] MEDS ORDERED: MECL-159 PO (22:10)
[2022-03-30 22:27] VITALS: BP 161/81
== END 2022-03-30 22:28 | disposition home or self-care (01) ==
LOC: ER 20:18
DX: R42 Dizziness and giddiness (principal); I10 Essential (primary) hypertension; E11.9 Type 2 diabetes mellitus without complications; Z79.899 Other long term (current) drug therapy
CPT/HCPCS: 99285; 96374; 70450; 71045; 93005; 85025; 80048; 36415; 84484; J8597; J3490

== ENCOUNTER 2024-01-11 21:35 | Emergency (ER) | payer MEDICARE, OTHER ==
[~2024-01-11] VITALS: Ht 172.7 cm; Wt 99.8 kg
[~2024-01-11 21:35] MED LIST changes: +MECL-159 PO
[2024-01-11 22:05] VITALS: TEMP 98.3
[2024-01-11] MEDS: TDAP [DIPH/PERTUSSIS/TET] 0.5 ML VIAL IM ONE (22:30)
[2024-01-11] MEDS ORDERED: TDAP [DIPH/PERTUSSIS/TET] 0.5 ML VIAL IM ONE (22:31)
[2024-01-12 01:39] VITALS: BP 148/82; O2SAT 99
== END 2024-01-12 01:41 | disposition home or self-care (01) ==
LOC: ER 21:39
DX: S01.01XA Laceration without foreign body of scalp, initial encounter (principal); R51.9 Headache, unspecified; I10 Essential (primary) hypertension; Z79.899 Other long term (current) drug therapy; Z79.82 Long term (current) use of aspirin; W18.39XA Other fall on same level, initial encounter; Y93.89 Activity, other specified; Y92.89 Other specified places as the place of occurrence of the external cause; Y99.8 Other external cause status
CPT/HCPCS: 70450-TC; 90715

== ENCOUNTER 2024-01-18 14:48 | Emergency (ER) | payer MEDICARE, OTHER ==
[~2024-01-18] VITALS: Ht 175.3 cm; Wt 96.6 kg
[2024-01-18 15:01] VITALS: BP 154/71; TEMP 98.5
[2024-01-18 15:36] VITALS: O2SAT 100
== END 2024-01-18 15:37 | disposition home or self-care (01) ==
LOC: ER 14:48
DX: S01.01XD Laceration without foreign body of scalp, subsequent encounter (principal); I10 Essential (primary) hypertension; E11.9 Type 2 diabetes mellitus without complications; Z48.02 Encounter for removal of sutures; X58.XXXD Exposure to other specified factors, subsequent encounter

== ENCOUNTER 2024-07-29 16:46 | Inpatient (IN) | payer MEDICARE, OTHER ==
[~2024-07-29] VITALS: Ht 165.1 cm; Wt 101.2 kg
[2024-07-29] MEDS: IV NS 0.9% 1,000 ML BAG IV ONE ×2 (17:00→19:11)
[2024-07-29 17:37] LABS: BASOPHILS % (AUTO) 0.4 % (0.0-2.0); EOSINOPHILS # (AUTO) 0.1 K/uL (0.0-0.7); EOSINOPHILS % (AUTO) 0.5 % (0.0-6.0); HEMATOCRIT 47 % (33-45); HEMOGLOBIN 15.2 g/dL (11.5-14.8); LYMPHOCYTES # (AUTO) 1.8 K/uL (0.8-4.8); LYMPHOCYTES % (AUTO) 15.8 % (20.0-44.0); MEAN CORPUSCULAR HEMOGLOBIN 28 PG (26.0-33.0); MEAN CORPUSCULAR HGB CONC 32 g/dl (31.0-36.0); MEAN CORPUSCULAR VOLUME 88 fL (82-100); MONOCYTES # (AUTO) 0.9 K/uL (0.1-1.30); MONOCYTES % (AUTO) 7.8 % (2.0-12.0); NEUTROPHILS # (AUTO) 8.6 K/uL (1.8-8.9); NEUTROPHILS % (AUTO) 75.5 % (43.0-81.0); PLATELET COUNT (AUTO) 238 K/uL (150-450); RED BLOOD CELL COUNT(AUTO) 5.36 MIL/uL (4.0-5.2); RED CELL DISTRIBUTION WIDTH 16.5 % (11.5-15.0); WHITE BLOOD COUNT (AUTO) 11.3 K/uL (4.3-11.0)
[2024-07-29] MEDS: MECLIZINE HCL 12.5 MG TABLET PO ONE (17:45)
[2024-07-29] MEDS ORDERED: MECLIZINE HCL 25 MG TABLET ONE (17:46)
[2024-07-29 17:54] LABS: INR 1.05 (0.91-1.10); PROTHROMBIN TIME 10.8 SECS (9.2-11.1)
[2024-07-29 17:55] LABS: PARTIAL THROMBOPLASTIN TIME 23.6 SEC (24.3-34.3)
[2024-07-29 18:54] LABS: CALCIUM, SERUM 9.9 mg/dL (8.5-10.1); CARBON DIOXIDE 23 mmol/L (21-32); CHLORIDE 111 mmol/L (98-107); CREATININE 1.2 mg/dL (0.6-1.3); GLUCOSE 148 mg/dL (74-106); POTASSIUM 5.1 mmol/L (3.5-5.1); SODIUM SERUM 144 mmol/L (136-145); UREA NITROGEN, BLOOD 22 mg/dL (7-18)
[2024-07-29 19:01] LABS: ALANINE AMINOTRANSFERASE 46 U/L (12-78); ALBUMIN 3.5 g/dL (3.4-5.0); ALKALINE PHOSPHATASE 63 U/L (46-116); ASPARTATE AMINOTRANSFERASE 20 U/L (15-37); BILIRUBIN,DIRECT 0.2 mg/dL (0.0-0.2); BILIRUBIN,TOTAL 0.5 mg/dL (0.2-1.0); TOTAL PROTEIN, SERUM 6.6 g/dL (6.4-8.2)
[2024-07-29] MEDS ORDERED: IV NS 0.9% 250 ML IV ONE (20:31)
[2024-07-29] MEDS ORDERED: IOHEXOL-350 100 ML VIAL IV ONE (20:31)
[2024-07-29 21:45] VITALS: BP 170/77; TEMP 97.9; O2SAT 96
[2024-07-29 21:46] LABS: APPEARANCE,URINE Clear (CLEAR); BILIRUBIN,URINE Negative (NEGATIVE); BLOOD, URINE Negative Ery/uL (NEGATIVE); COLOR,URINE YELLOW (YELLOW); KETONES,URINE Negative (NEGATIVE); LEUKOCYTE ESTERASE ,URINE Negative (NEGATIVE); NITRITE, URINE Positive (NEGATIVE); PROTEIN,URINE Negative (NEGATIVE); UGLUCOSE Negative (NEGATIVE); UROBILINOGEN,URINE 0.2 EU/dL (0.2)
[2024-07-29 22:00] LABS: SQUAMOUS EPITHELIAL CELL,UR Moderate /HPF (None Seen)
[2024-07-29 22:01] LABS: ADD URINE CULTURE YES; BACTERIA,URINE Moderate /HPF (None Seen); RBC,URINE 0-2 /HPF (0-2)
[2024-07-29] MEDS ORDERED: CEFTRIAXONE 1GM BAG (ER ONLY) 50 ML IV ONE (23:26)
[2024-07-29] MEDS ORDERED: MECLIZINE HCL 25 MG TABLET PO PRN (23:30)
[2024-07-29] MEDS: CEFTRIAXONE 1 G in IV D5W 50 ML IV SCH (23:48)
[2024-07-30] VITALS: BP 149/64; TEMP 97.7; O2SAT 96
[2024-07-30] MEDS: BLOOD SUGAR DIAGNOSTIC 1 EACH STRIP IN SCH (00:12)
[2024-07-30] MEDS ORDERED: DONE10TA44 PO (00:59)
[2024-07-30] MEDS ORDERED: SITA1TAB2 PO (00:59)
[2024-07-30] MEDS ORDERED: METO-358 PO (00:59)
[2024-07-30] MEDS ORDERED: ALLO100T PO (00:59)
[2024-07-30] MEDS ORDERED: DAPA10TA PO (00:59)
[2024-07-30] MEDS ORDERED: FERR324T4 PO (00:59)
[2024-07-30] MEDS ORDERED: CHOL500062 PO (00:59)
[2024-07-30] MEDS ORDERED: DILT120T14 PO (00:59)
[2024-07-30] MEDS ORDERED: CELE-85 PO (00:59)
[2024-07-30 04:00] VITALS: BP 153/82; TEMP 97.9; O2SAT 96
[2024-07-30 06:42] LABS: BASOPHILS % (AUTO) 0.5 % (0.0-2.0); EOSINOPHILS # (AUTO) 0.1 K/uL (0.0-0.7); EOSINOPHILS % (AUTO) 1.5 % (0.0-6.0); HEMATOCRIT 43 % (33-45); HEMOGLOBIN 14.3 g/dL (11.5-14.8); LYMPHOCYTES # (AUTO) 1.4 K/uL (0.8-4.8); LYMPHOCYTES % (AUTO) 17.9 % (20.0-44.0); MEAN CORPUSCULAR HEMOGLOBIN 29 PG (26.0-33.0); MEAN CORPUSCULAR HGB CONC 34 g/dl (31.0-36.0); MEAN CORPUSCULAR VOLUME 86 fL (82-100); MONOCYTES # (AUTO) 0.6 K/uL (0.1-1.30); MONOCYTES % (AUTO) 8.1 % (2.0-12.0); NEUTROPHILS # (AUTO) 5.7 K/uL (1.8-8.9); PLATELET COUNT (AUTO) 213 K/uL (150-450); RED BLOOD CELL COUNT(AUTO) 4.95 MIL/uL (4.0-5.2); WHITE BLOOD COUNT (AUTO) 7.9 K/uL (4.3-11.0)
[2024-07-30 06:45] LABS: CALCIUM, SERUM 8.6 mg/dL (8.5-10.1); CREATININE 0.7 mg/dL (0.6-1.3); MAGNESIUM 1.8 mg/dL (1.8-2.4); POTASSIUM 3.7 mmol/L (3.5-5.1)
[2024-07-30 07:13] LABS: THYROID STIMULATING HORMONE 2.26 uIU/mL (0.358-3.74)
[2024-07-30] MEDS: PANTOPRAZOLE 40 MG TABLET.DR PO SCH (07:45)
[2024-07-30 08:00] VITALS: BP 183/87; TEMP 98.5; O2SAT 94
[2024-07-30] MEDS: ATORVASTATIN 40 MG TABLET PO SCH (08:16)
[2024-07-30] MEDS: ASPIRIN 81 MG TAB.CHEW PO SCH (08:16)
[2024-07-30] MEDS: PREGABALIN 25 MG CAPSULE PO SCH (08:16)
[2024-07-30] MEDS ORDERED: IBUP1TAB68 PO (09:51)
[2024-07-30] MEDS ORDERED: POTA-10 PO (09:51)
[2024-07-30] MEDS: DONEPEZIL 5 MG TABLET PO SCH (12:28)
[2024-07-30] MEDS: FERROUS SULFATE (325 MG) 325 MG/TAB TABLET PO SCH (12:28)
[2024-07-30] MEDS: CELECOXIB 100 MG CAPSULE PO SCH (12:29)
[2024-07-30] MEDS: CHOLECALCIFEROL 1,000 UNIT TABLET (VIT D3) PO SCH (12:29)
[2024-07-30] MEDS: ALLOPURINOL 100 MG TABLET PO SCH (12:29)
[2024-07-30] MEDS: METOPROLOL SUCCINATE 50 MG TAB.SR.24H PO SCH (12:30)
[2024-07-30] MEDS: DAPAGLIFLOZIN PROPANEDIOL 10 MG TABLET PO SCH (12:31)
[2024-07-30 16:00] VITALS: BP 173/82; TEMP 99; O2SAT 93
[2024-07-30 20:00] VITALS: BP 161/86; TEMP 98.2; O2SAT 92; O2SAT 97
[2024-07-30] MEDS: DILTIAZEM HCL 30 MG TABLET PO SCH (21:13)
[2024-07-31] VITALS: BP 122/56; TEMP 98.6; O2SAT 98
[2024-07-31 04:00] VITALS: BP 129/63; TEMP 98.6; O2SAT 94; O2SAT 96
[2024-07-31 08:00] VITALS: BP 174/90; TEMP 100.4; O2SAT 94
[2024-07-31] MEDS: ACETAMINOPHEN 325 MG TABLET PO PRN (08:20)
[2024-07-31] MEDS: LINAGLIPTIN 5 MG TABLET PO SCH (09:57)
[2024-07-31] MEDS: METFORMIN XR 500 MG TAB.SR.24H PO SCH (10:41)
[2024-07-31 12:00] VITALS: BP 139/66; TEMP 98.2; O2SAT 98
[2024-07-31 12:55] LABS: CALCIUM, SERUM 8.6 mg/dL (8.5-10.1); CREATININE 0.9 mg/dL (0.6-1.3); POTASSIUM 4.1 mmol/L (3.5-5.1)
[2024-07-31 14:26] LABS: BASOPHILS # (AUTO) 0.1 K/uL (0.0-0.2); BASOPHILS % (AUTO) 0.6 % (0.0-2.0); EOSINOPHILS # (AUTO) 0.1 K/uL (0.0-0.7); EOSINOPHILS % (AUTO) 1.1 % (0.0-6.0); HEMATOCRIT 44 % (33-45); HEMOGLOBIN 14.5 g/dL (11.5-14.8); LYMPHOCYTES # (AUTO) 2.3 K/uL (0.8-4.8); LYMPHOCYTES % (AUTO) 20.2 % (20.0-44.0); MEAN CORPUSCULAR HEMOGLOBIN 29 PG (26.0-33.0); MEAN CORPUSCULAR HGB CONC 33 g/dl (31.0-36.0); MEAN CORPUSCULAR VOLUME 87 fL (82-100); MONOCYTES % (AUTO) 8.9 % (2.0-12.0); NEUTROPHILS # (AUTO) 7.7 K/uL (1.8-8.9); NEUTROPHILS % (AUTO) 69.2 % (43.0-81.0); PLATELET COUNT (AUTO) 221 K/uL (150-450); RED BLOOD CELL COUNT(AUTO) 5.06 MIL/uL (4.0-5.2); RED CELL DISTRIBUTION WIDTH 15.6 % (11.5-15.0); WHITE BLOOD COUNT (AUTO) 11.2 K/uL (4.3-11.0)
[2024-07-31 16:00] VITALS: BP 154/72; TEMP 97.7; O2SAT 92
[2024-07-31 20:00] VITALS: BP 147/68; TEMP 97.7; O2SAT 94
[2024-08-01] VITALS: BP 139/85; TEMP 97.3; O2SAT 96
[2024-08-01 00:14] VITALS: BP_SYST 139; BP_SYST 146; BP_DIAS 56; BP_DIAS 79; BP_DIAS 85; TEMP 97.3; O2SAT 96
[2024-08-01 04:00] VITALS: BP 113/52; TEMP 97.9; O2SAT 94
[2024-08-01 07:17] LABS: BASOPHILS % (AUTO) 0.5 % (0.0-2.0); EOSINOPHILS # (AUTO) 0.2 K/uL (0.0-0.7); EOSINOPHILS % (AUTO) 2.4 % (0.0-6.0); HEMATOCRIT 42 % (33-45); HEMOGLOBIN 13.8 g/dL (11.5-14.8); LYMPHOCYTES # (AUTO) 2.1 K/uL (0.8-4.8); LYMPHOCYTES % (AUTO) 22.9 % (20.0-44.0); MEAN CORPUSCULAR HEMOGLOBIN 28 PG (26.0-33.0); MEAN CORPUSCULAR HGB CONC 33 g/dl (31.0-36.0); MEAN CORPUSCULAR VOLUME 85 fL (82-100); MONOCYTES # (AUTO) 0.9 K/uL (0.1-1.30); MONOCYTES % (AUTO) 9.6 % (2.0-12.0); NEUTROPHILS # (AUTO) 5.8 K/uL (1.8-8.9); NEUTROPHILS % (AUTO) 64.6 % (43.0-81.0); PLATELET COUNT (AUTO) 200 K/uL (150-450); RED BLOOD CELL COUNT(AUTO) 4.88 MIL/uL (4.0-5.2); RED CELL DISTRIBUTION WIDTH 15.9 % (11.5-15.0); WHITE BLOOD COUNT (AUTO) 9.1 K/uL (4.3-11.0)
[2024-08-01 07:30] VITALS: BP 133/62; TEMP 97.5; O2SAT 91
[2024-08-01 07:30] LABS: CALCIUM, SERUM 8.8 mg/dL (8.5-10.1); CREATININE 0.9 mg/dL (0.6-1.3); MAGNESIUM 1.9 mg/dL (1.8-2.4); PHOSPHORUS 3.5 mg/dL (2.5-4.9); POTASSIUM 3.6 mmol/L (3.5-5.1)
[2024-08-01 08:00] VITALS: BP 133/62; TEMP 97.5
[2024-08-01] MEDS ORDERED: ASPI-1169 PO (13:13)
[2024-08-01] MEDS ORDERED: CIPR500T5 PO (13:13)
== END 2024-08-01 14:45 | disposition home or self-care (01) | DRG 69 ==
LOC: ER 17:35 → TELE 21:26
PROVIDERS: ATTEND Nurse Practitioner Acute Care
DX: G45.9 Transient cerebral ischemic attack, unspecified (principal); N39.0 Urinary tract infection, site not specified; E87.0 Hyperosmolality and hypernatremia; I11.0 Hypertensive heart disease with heart failure; Z79.82 Long term (current) use of aspirin; Z79.899 Other long term (current) drug therapy; I50.9 Heart failure, unspecified; B96.89 Other specified bacterial agents as the cause of diseases classified elsewhere; E78.5 Hyperlipidemia, unspecified; G47.33 Obstructive sleep apnea (adult) (pediatric); Z68.37 Body mass index [BMI] 37.0-37.9, adult; E66.9 Obesity, unspecified; Z98.890 Other specified postprocedural states; Z87.19 Personal history of other diseases of the digestive system; E11.42 Type 2 diabetes mellitus with diabetic polyneuropathy; E86.0 Dehydration; G93.89 Other specified disorders of brain; R79.89 Other specified abnormal findings of blood chemistry
CPT/HCPCS: 36415; 70450-TC; 70496-TC; 70498-TC; 71045-TC; 80048-TC; 80061-TC; 80076-TC; 81001; 82607-TC; 82962-TC; 83605-TC; 83735-TC; 83880; 84100-TC; 84443-TC; 84484-TC; 85025-TC; 85730-TC; 87086-TC; 93307-TC; 93970-TC; 97110-TC; 97116-TC; 97530-TC; 97535-TC; A4223; G0378; J0696; J7030; J7050; J7060; J8597; Q9967

== ENCOUNTER 2024-12-17 23:01 | Inpatient (IN) | payer MEDICARE, OTHER ==
[~2024-12-17] VITALS: Ht 170.2 cm; Wt 81.6 kg
[~2024-12-17 23:01] MED LIST changes: +ALLO100T PO; -AMLO-213 PO; -AMLO5TAB4 PO; -AMOX-430 PO; +ASPI-1169 PO; -Aspirin PO; +CELE-85 PO; +CHOL500062 PO; +CIPR500T5 PO; +DAPA10TA PO; +DILT120T14 PO; +DONE10TA44 PO; +FERR324T4 PO; -HYDR-4384 PO; +IBUP1TAB68 PO; -LISI10TA30 PO; -MECL-159 PO; +METO-358 PO; -NITR0.4T SL; -PANT40TA2 PO; +POTA-10 PO; -PREG50CA PO; +SITA1TAB2 PO
[2024-12-18] MEDS: CEFTRIAXONE 1GM BAG (ER ONLY) 1 GM/50 ML PIGGYBACK IV ONE (00:26)
[2024-12-18] MEDS ORDERED: CEFTRIAXONE 1GM BAG (ER ONLY) 50 ML IV ONE (00:26)
[2024-12-18] MEDS: IV NS 0.9% 500 ML BAG IV ONE ×2 (00:26→01:11)
[2024-12-18 00:37] LABS: BASOPHILS # (AUTO) 0.1 K/uL (0.0-0.2); BASOPHILS % (AUTO) 0.2 % (0.0-2.0); EOSINOPHILS % (AUTO) 0.1 % (0.0-6.0); HEMATOCRIT 49 % (33-45); HEMOGLOBIN 16.2 g/dL (11.5-14.8); LYMPHOCYTES % (AUTO) 4.9 % (20.0-44.0); MEAN CORPUSCULAR HEMOGLOBIN 29 PG (26.0-33.0); MEAN CORPUSCULAR HGB CONC 33 g/dl (31.0-36.0); MEAN CORPUSCULAR VOLUME 86 fL (82-100); MONOCYTES # (AUTO) 0.9 K/uL (0.1-1.30); MONOCYTES % (AUTO) 4.5 % (2.0-12.0); NEUTROPHILS # (AUTO) 18.9 K/uL (1.8-8.9); NEUTROPHILS % (AUTO) 90.3 % (43.0-81.0); PLATELET COUNT (AUTO) 205 K/uL (150-450); RED BLOOD CELL COUNT(AUTO) 5.67 MIL/uL (4.0-5.2); RED CELL DISTRIBUTION WIDTH 15.6 % (11.5-15.0); WHITE BLOOD COUNT (AUTO) 20.9 K/uL (4.3-11.0)
[2024-12-18 00:37] LABS: APPEARANCE,URINE SLIGHTLY CLOUDY (CLEAR); BILIRUBIN,URINE NEGATIVE (NEGATIVE); BLOOD, URINE 2+ Ery/uL (NEGATIVE); COLOR,URINE YELLOW (YELLOW); KETONES,URINE NEGATIVE (NEGATIVE); LEUKOCYTE ESTERASE ,URINE NEGATIVE (NEGATIVE); NITRITE, URINE NEGATIVE (NEGATIVE); PROTEIN,URINE 2+ mg/dl (NEGATIVE); UGLUCOSE NEGATIVE (NEGATIVE)
[2024-12-18 00:43] LABS: CALCIUM, SERUM 9.5 mg/dL (8.5-10.1); CARBON DIOXIDE 24 mmol/L (21-32); CHLORIDE 100 mmol/L (98-107); GLUCOSE 176 mg/dL (74-106); POTASSIUM 3.7 mmol/L (3.5-5.1); SODIUM SERUM 136 mmol/L (136-145); UREA NITROGEN, BLOOD 19 mg/dL (7-18)
[2024-12-18 00:50] LABS: ALANINE AMINOTRANSFERASE 41 U/L (12-78); ALBUMIN 3.1 g/dL (3.4-5.0); ALKALINE PHOSPHATASE 77 U/L (46-116); ASPARTATE AMINOTRANSFERASE 39 U/L (15-37); BILIRUBIN,DIRECT 0.7 mg/dL (0.0-0.2); TOTAL PROTEIN, SERUM 7.2 g/dL (6.4-8.2)
[2024-12-18 01:00] LABS: INR 1.21 (0.91-1.10); PARTIAL THROMBOPLASTIN TIME 30.2 SEC (24.3-34.3); PROTHROMBIN TIME 12.7 SECS (9.2-11.1)
[2024-12-18 01:56] LABS: ADD URINE CULTURE YES; BACTERIA,URINE Many /HPF (None Seen)
[2024-12-18 01:57] LABS: SQUAMOUS EPITHELIAL CELL,UR Moderate /HPF (None Seen)
[2024-12-18] MEDS ORDERED: ASPIRIN 325 MG TABLET ONE (02:09)
[2024-12-18] MEDS: ASPIRIN 325 MG TABLET PO ONE (02:09)
[2024-12-18] MEDS ORDERED: PIPERACI/TAZO 3.375GM/D5W 50ML PB IV ONE (05:04)
[2024-12-18] MEDS ORDERED: VANCOMYCIN 1 GM /D5W 250 ML PB IV ONE (05:04)
[2024-12-18] MEDS: PIPERACILLIN /TAZOBACTAM 3.375 G in IV D5W 50 ML IV ONE (05:05)
[2024-12-18] MEDS ORDERED: DIATR MEGLU/DIATRIZOATE SODIUM 120 ML BOTTLE (GASTROGRAPHIN) ONE ×2 (05:27→07:11)
[2024-12-18] MEDS ORDERED: DEXTROSE 50%-WATER 50 ML DISP.SYRIN IV PRN (05:30)
[2024-12-18] MEDS: VANCOMYCIN 1 GM in IV D5W 250 ML IV ONE (05:30)
[2024-12-18] MEDS ORDERED: ONDANSETRON HCL/PF 4 MG/2 ML VIAL IVP PRN (05:30)
[2024-12-18] MEDS ORDERED: MORPHINE SULFATE INJ 2 MG/ML DISP.SYRIN IV PRN (05:30)
[2024-12-18] MEDS: IV NS 0.9% 1,000 ML IV SCH (06:31)
[2024-12-18 07:06] VITALS: BP 130/106; TEMP 98.1; O2SAT 98
[2024-12-18] MEDS: BLOOD SUGAR DIAGNOSTIC 1 EACH STRIP VI SCH (07:30)
[2024-12-18 08:00] VITALS: BP 127/76; TEMP 98.3; O2SAT 96
[2024-12-18] MEDS: CEFEPIME 2 GM in IV D5W 100 ML IV SCH (08:09)
[2024-12-18] MEDS: ASPIRIN 81 MG TAB.CHEW PO SCH (08:38)
[2024-12-18] MEDS: DONEPEZIL 5 MG TABLET PO SCH (08:38)
[2024-12-18] MEDS: FERROUS SULFATE (325 MG) 325 MG/TAB TABLET PO SCH (08:38)
[2024-12-18] MEDS: METOPROLOL SUCCINATE 50 MG TAB.SR.24H PO SCH (08:39)
[2024-12-18] MEDS: ALLOPURINOL 100 MG TABLET PO SCH (08:39)
[2024-12-18] MEDS: DOCUSATE SODIUM LIQ 100 MG/10 ML UDC PO SCH (08:40)
[2024-12-18] MEDS: POLYETHYLENE GLYCOL 3350 17 GM POWD.PACK PO SCH (08:40)
[2024-12-18] MEDS: HEPARIN SODIUM, PORCINE 5000 UNITS/1 ML VIAL SQ SCH (09:00)
[2024-12-18] MEDS: AZITHROMYCIN 500 MG in IV D5W 250 ML IV SCH (10:27)
[2024-12-18 12:00] VITALS: BP 140/90; TEMP 98.4; O2SAT 97
[2024-12-18 16:00] VITALS: BP 145/62; TEMP 97.5; O2SAT 95
[2024-12-18 20:00] VITALS: BP 148/92; TEMP 99.1; O2SAT 96
[2024-12-18] MEDS: PIPERACILLIN /TAZOBACTAM 3.375 G in IV D5W 100 ML IV SCH (20:05)
[2024-12-18] MEDS ORDERED: PIPERACILLIN /TAZOBACTAM 3.375 G in IV D5W 50 ML IV SCH (21:00)
[2024-12-18] MEDS: ATORVASTATIN 10 MG TABLET PO SCH (21:39)
[2024-12-18] MEDS: DILTIAZEM HCL CD 120 MG PO SCH (21:40)
[2024-12-18] MEDS: *INSULIN REGULAR(HUMULIN R)HUM 100 UNIT/ML VIAL SQ PRN (21:58)
[2024-12-19] VITALS (7 sets, daily range): BP systolic 145–158; BP diastolic 80–85; TEMP 97.9–98.6; O2SAT 92–100
[2024-12-19] MEDS: INSULIN REGULAR, HUMAN 100 UNIT/ML 3 ML VIAL SQ PRN (06:01)
[2024-12-19 06:50] LABS: BASOPHILS % (AUTO) 0.1 % (0.0-2.0); EOSINOPHILS % (AUTO) 0.1 % (0.0-6.0); HEMATOCRIT 45 % (33-45); HEMOGLOBIN 14.7 g/dL (11.5-14.8); LYMPHOCYTES # (AUTO) 0.7 K/uL (0.8-4.8); LYMPHOCYTES % (AUTO) 5.1 % (20.0-44.0); MEAN CORPUSCULAR HEMOGLOBIN 29 PG (26.0-33.0); MEAN CORPUSCULAR HGB CONC 33 g/dl (31.0-36.0); MEAN CORPUSCULAR VOLUME 87 fL (82-100); MONOCYTES # (AUTO) 0.7 K/uL (0.1-1.30); MONOCYTES % (AUTO) 5.7 % (2.0-12.0); NEUTROPHILS # (AUTO) 11.4 K/uL (1.8-8.9); PLATELET COUNT (AUTO) 180 K/uL (150-450); RED BLOOD CELL COUNT(AUTO) 5.15 MIL/uL (4.0-5.2); RED CELL DISTRIBUTION WIDTH 15.5 % (11.5-15.0); WHITE BLOOD COUNT (AUTO) 12.8 K/uL (4.3-11.0)
[2024-12-19 07:04] LABS: ALBUMIN 2.3 g/dL (3.4-5.0); BILIRUBIN,TOTAL 1.1 mg/dL (0.2-1.0); CALCIUM, SERUM 8.7 mg/dL (8.5-10.1); CREATININE 0.9 mg/dL (0.6-1.3); MAGNESIUM 2.2 mg/dL (1.8-2.4); PHOSPHORUS 2.3 mg/dL (2.5-4.9); POTASSIUM 3.4 mmol/L (3.5-5.1); TOTAL PROTEIN, SERUM 6.2 g/dL (6.4-8.2)
[2024-12-19] MEDS ORDERED: POTASSIUM CHLORIDE 20 MEQ TAB.PRT.SR PO SCH (10:00)
[2024-12-19] MEDS: POTASSIUM CL. PREMIX PERIPHER. 50 ML IV SCH (10:40)
[2024-12-20] VITALS (7 sets, daily range): BP systolic 134–176; BP diastolic 67–91; TEMP 97.9–100.9; O2SAT 93–98
[2024-12-20 06:49] LABS: CALCIUM, SERUM 8.7 mg/dL (8.5-10.1); CREATININE 0.8 mg/dL (0.6-1.3); POTASSIUM 3.5 mmol/L (3.5-5.1)
[2024-12-20 07:05] LABS: BASOPHILS % (AUTO) 0.1 % (0.0-2.0); EOSINOPHILS % (AUTO) 0.1 % (0.0-6.0); HEMATOCRIT 44 % (33-45); HEMOGLOBIN 14.4 g/dL (11.5-14.8); LYMPHOCYTES # (AUTO) 0.7 K/uL (0.8-4.8); LYMPHOCYTES % (AUTO) 4.5 % (20.0-44.0); MEAN CORPUSCULAR HEMOGLOBIN 28 PG (26.0-33.0); MEAN CORPUSCULAR HGB CONC 33 g/dl (31.0-36.0); MEAN CORPUSCULAR VOLUME 87 fL (82-100); MONOCYTES % (AUTO) 6.7 % (2.0-12.0); NEUTROPHILS # (AUTO) 13.3 K/uL (1.8-8.9); NEUTROPHILS % (AUTO) 88.6 % (43.0-81.0); PLATELET COUNT (AUTO) 197 K/uL (150-450); RED BLOOD CELL COUNT(AUTO) 5.13 MIL/uL (4.0-5.2); RED CELL DISTRIBUTION WIDTH 15.4 % (11.5-15.0); WHITE BLOOD COUNT (AUTO) 14.9 K/uL (4.3-11.0)
[2024-12-20] MEDS: IV NS 0.9% 1,000 ML IV PRN (10:48)
[2024-12-20] MEDS: hydrALAZINE HCL IV 20 MG VIAL IV PRN (15:54)
[2024-12-21] VITALS: BP 158/73; TEMP 98.4; O2SAT 94
[2024-12-21 04:00] VITALS: BP 158/73; TEMP 98.4; O2SAT 94
[2024-12-21 06:52] LABS: BASOPHILS % (AUTO) 0.1 % (0.0-2.0); EOSINOPHILS # (AUTO) 0.1 K/uL (0.0-0.7); EOSINOPHILS % (AUTO) 0.3 % (0.0-6.0); HEMATOCRIT 46 % (33-45); HEMOGLOBIN 15.1 g/dL (11.5-14.8); LYMPHOCYTES # (AUTO) 0.9 K/uL (0.8-4.8); LYMPHOCYTES % (AUTO) 4.8 % (20.0-44.0); MEAN CORPUSCULAR HEMOGLOBIN 29 PG (26.0-33.0); MEAN CORPUSCULAR HGB CONC 33 g/dl (31.0-36.0); MEAN CORPUSCULAR VOLUME 87 fL (82-100); MONOCYTES # (AUTO) 1.2 K/uL (0.1-1.30); NEUTROPHILS # (AUTO) 15.8 K/uL (1.8-8.9); NEUTROPHILS % (AUTO) 87.8 % (43.0-81.0); PLATELET COUNT (AUTO) 217 K/uL (150-450); RED BLOOD CELL COUNT(AUTO) 5.28 MIL/uL (4.0-5.2); RED CELL DISTRIBUTION WIDTH 15.5 % (11.5-15.0)
[2024-12-21 07:00] VITALS: BP 156/79; TEMP 97.5; O2SAT 96
[2024-12-21 07:07] LABS: CALCIUM, SERUM 8.8 mg/dL (8.5-10.1); CREATININE 0.8 mg/dL (0.6-1.3); POTASSIUM 3.5 mmol/L (3.5-5.1)
[2024-12-21] MEDS: ACETAMINOPHEN 325 MG TABLET PO PRN (10:31)
[2024-12-21 11:30] VITALS: BP 133/82; TEMP 97.3; O2SAT 94
[2024-12-21 16:00] VITALS: BP 124/88; TEMP 98.1; O2SAT 94
[2024-12-21 18:10] LABS: BILIRUBIN,DIRECT 0.3 mg/dL (0.0-0.2); BILIRUBIN,TOTAL 0.7 mg/dL (0.2-1.0)
[2024-12-21 20:00] VITALS: BP_SYST 131; TEMP 97.5; O2SAT 92
[2024-12-21] MEDS ORDERED: IOHEXOL-300 100 ML VIAL IV ONE (22:35)
[2024-12-21] MEDS ORDERED: IV NS 0.9% 250 ML IV ONE (22:35)
[2024-12-21] MEDS ORDERED: CT SWABBABLE VALVE TRANS SET 1 EA INFUS.SET MC ONE (22:35)
[2024-12-22] VITALS (7 sets, daily range): BP systolic 149–160; BP diastolic 65–99; TEMP 97.5–98.1; O2SAT 94–96
[2024-12-22 07:53] LABS: BASOPHILS % (AUTO) 0.2 % (0.0-2.0); EOSINOPHILS # (AUTO) 0.1 K/uL (0.0-0.7); EOSINOPHILS % (AUTO) 0.5 % (0.0-6.0); HEMATOCRIT 44 % (33-45); HEMOGLOBIN 14.5 g/dL (11.5-14.8); LYMPHOCYTES # (AUTO) 1.1 K/uL (0.8-4.8); LYMPHOCYTES % (AUTO) 6.3 % (20.0-44.0); MEAN CORPUSCULAR HEMOGLOBIN 28 PG (26.0-33.0); MEAN CORPUSCULAR HGB CONC 33 g/dl (31.0-36.0); MEAN CORPUSCULAR VOLUME 86 fL (82-100); MONOCYTES # (AUTO) 1.3 K/uL (0.1-1.30); MONOCYTES % (AUTO) 7.7 % (2.0-12.0); NEUTROPHILS # (AUTO) 14.5 K/uL (1.8-8.9); NEUTROPHILS % (AUTO) 85.3 % (43.0-81.0); PLATELET COUNT (AUTO) 239 K/uL (150-450); RED BLOOD CELL COUNT(AUTO) 5.18 MIL/uL (4.0-5.2); RED CELL DISTRIBUTION WIDTH 15.3 % (11.5-15.0)
[2024-12-22 08:26] LABS: CALCIUM, SERUM 8.2 mg/dL (8.5-10.1); CREATININE 0.8 mg/dL (0.6-1.3); POTASSIUM 3.1 mmol/L (3.5-5.1)
[2024-12-22] MEDS: POTASSIUM CL. PREMIX PERIPHER. 50 ML IV SCH (09:20)
[2024-12-22] MEDS ORDERED: FLUCONAZOLE IN NS 200 MG in PREMIX 1 EA IV SCH (23:00)
[2024-12-23] VITALS (14 sets, daily range): BP systolic 141–182; BP diastolic 71–93; TEMP 97.3–98.4; O2SAT 92–98
[2024-12-23] MEDS ORDERED: FLUCONAZOLE IN NS 100 ML IV ONE (00:09)
[2024-12-23] MEDS: FLUCONAZOLE IN NS 100 MG in PREMIX 1 EA IV SCH ×2 (00:18→21:56)
[2024-12-23 08:34] LABS: BASOPHILS # (AUTO) 0.1 K/uL (0.0-0.2); BASOPHILS % (AUTO) 0.4 % (0.0-2.0); EOSINOPHILS # (AUTO) 0.1 K/uL (0.0-0.7); EOSINOPHILS % (AUTO) 0.4 % (0.0-6.0); HEMATOCRIT 45 % (33-45); HEMOGLOBIN 14.7 g/dL (11.5-14.8); LYMPHOCYTES # (AUTO) 1.2 K/uL (0.8-4.8); LYMPHOCYTES % (AUTO) 7.3 % (20.0-44.0); MEAN CORPUSCULAR HEMOGLOBIN 28 PG (26.0-33.0); MEAN CORPUSCULAR HGB CONC 33 g/dl (31.0-36.0); MEAN CORPUSCULAR VOLUME 85 fL (82-100); MONOCYTES # (AUTO) 1.2 K/uL (0.1-1.30); NEUTROPHILS # (AUTO) 14.1 K/uL (1.8-8.9); NEUTROPHILS % (AUTO) 84.9 % (43.0-81.0); PLATELET COUNT (AUTO) 264 K/uL (150-450); RED BLOOD CELL COUNT(AUTO) 5.28 MIL/uL (4.0-5.2); RED CELL DISTRIBUTION WIDTH 15.1 % (11.5-15.0); WHITE BLOOD COUNT (AUTO) 16.7 K/uL (4.3-11.0)
[2024-12-23 08:48] LABS: ALBUMIN 1.9 g/dL (3.4-5.0); BILIRUBIN,DIRECT 0.2 mg/dL (0.0-0.2); BILIRUBIN,TOTAL 0.6 mg/dL (0.2-1.0); CALCIUM, SERUM 7.9 mg/dL (8.5-10.1); CREATININE 0.8 mg/dL (0.6-1.3); MAGNESIUM 1.9 mg/dL (1.8-2.4); PHOSPHORUS 2.8 mg/dL (2.5-4.9); POTASSIUM 3.5 mmol/L (3.5-5.1); TOTAL PROTEIN, SERUM 5.7 g/dL (6.4-8.2)
[2024-12-23] MEDS ORDERED: TPN/PPN PER PHARMACY IV PRN (09:00)
[2024-12-23 09:34] LABS: LYMPHOCYTES % (MANUAL) 9 % (16-48); MONOCYTES % (MANUAL) 5 % (0-11.0); NEUTROPHILS % (MANUAL) 86 (42-76); PLATELET ESTIMATE ADEQUATE
[2024-12-23 09:35] LABS: ANISOCYTOSIS 1+
[2024-12-23] MEDS ORDERED: DEXTROSE 50%-WATER 50 ML DISP.SYRIN IV PRN (10:00)
[2024-12-23] MEDS: BLOOD SUGAR DIAGNOSTIC 1 EACH STRIP IN SCH (11:51)
[2024-12-23] MEDS ORDERED: FLUMAZENIL 0.5 MG VIAL IV PRN (12:00)
[2024-12-23] MEDS ORDERED: MIDAZOLAM HCL 2 MG/2ML VIAL IV PRN (12:00)
[2024-12-23] MEDS ORDERED: FENTANYL PF 250MCG/5ML AMPUL IV PRN (12:00)
[2024-12-23] MEDS ORDERED: PPN BAG #1 IV SCH (12:00)
[2024-12-23] MEDS ORDERED: NALOXONE PREFILLED SYRINGE 2 MG/2 ML SYRINGE IV PRN (12:00)
[2024-12-23] MEDS: IV NS 0.9% 1,000 ML IV SCH (14:07)
[2024-12-23] MEDS: PPN BAG #1 IV SCH (15:38)
[2024-12-23] MEDS: POTASSIUM CL. PREMIX PERIPHER. 50 ML IV SCH (20:13)
[2024-12-23] MEDS: Magnesium 1GM/D5W 100ML PREMIX 100 ML IV SCH (23:14)
[2024-12-24] MEDS: INSULIN REGULAR, HUMAN 100 UNIT/ML 3 ML VIAL SQ PRN (00:17)
[2024-12-24 06:42] LABS: BASOPHILS % (AUTO) 0.2 % (0.0-2.0); EOSINOPHILS # (AUTO) 0.1 K/uL (0.0-0.7); EOSINOPHILS % (AUTO) 1.1 % (0.0-6.0); HEMATOCRIT 45 % (33-45); HEMOGLOBIN 14.7 g/dL (11.5-14.8); LYMPHOCYTES # (AUTO) 1.4 K/uL (0.8-4.8); LYMPHOCYTES % (AUTO) 12.3 % (20.0-44.0); MEAN CORPUSCULAR HEMOGLOBIN 28 PG (26.0-33.0); MEAN CORPUSCULAR HGB CONC 33 g/dl (31.0-36.0); MEAN CORPUSCULAR VOLUME 86 fL (82-100); MONOCYTES % (AUTO) 8.3 % (2.0-12.0); NEUTROPHILS % (AUTO) 78.1 % (43.0-81.0); PLATELET COUNT (AUTO) 291 K/uL (150-450); RED BLOOD CELL COUNT(AUTO) 5.17 MIL/uL (4.0-5.2); WHITE BLOOD COUNT (AUTO) 11.5 K/uL (4.3-11.0)
[2024-12-24 06:52] LABS: ALBUMIN 2.1 g/dL (3.4-5.0); BILIRUBIN,DIRECT 0.2 mg/dL (0.0-0.2); BILIRUBIN,TOTAL 0.6 mg/dL (0.2-1.0); CALCIUM, SERUM 8.1 mg/dL (8.5-10.1); CREATININE 0.7 mg/dL (0.6-1.3); MAGNESIUM 2.2 mg/dL (1.8-2.4); PHOSPHORUS 2.6 mg/dL (2.5-4.9); POTASSIUM 3.1 mmol/L (3.5-5.1); TOTAL PROTEIN, SERUM 5.8 g/dL (6.4-8.2)
[2024-12-24 08:00] VITALS: BP_SYST 173; BP_SYST 177; BP_DIAS 86; BP_DIAS 96; TEMP 97.5; O2SAT 92
[2024-12-24] MEDS: POTASSIUM CL. PREMIX PERIPHER. 50 ML IV SCH (09:11)
[2024-12-24 09:31] VITALS: BP 153/102
[2024-12-24] MEDS: FAT EMULSION 20% 500 ML in PREMIX 1 EA IV SCH (14:44)
[2024-12-24 16:00] VITALS: BP 175/83; TEMP 97.5; O2SAT 93
[2024-12-24 16:36] VITALS: BP 175/83; TEMP 97.5; O2SAT 93
[2024-12-24] MEDS: DOCUSATE SODIUM 100 MG CAPSULE PO SCH (17:00)
[2024-12-24] MEDS: PPN BAG #2 IV SCH (17:38)
[2024-12-24 20:00] VITALS: BP 158/79; TEMP 97.7; O2SAT 95
[2024-12-25 07:41] LABS: BASOPHILS % (AUTO) 0.2 % (0.0-2.0); EOSINOPHILS # (AUTO) 0.2 K/uL (0.0-0.7); EOSINOPHILS % (AUTO) 1.2 % (0.0-6.0); HEMATOCRIT 45 % (33-45); HEMOGLOBIN 14.7 g/dL (11.5-14.8); LYMPHOCYTES # (AUTO) 1.2 K/uL (0.8-4.8); LYMPHOCYTES % (AUTO) 9.1 % (20.0-44.0); MEAN CORPUSCULAR HEMOGLOBIN 28 PG (26.0-33.0); MEAN CORPUSCULAR HGB CONC 33 g/dl (31.0-36.0); MEAN CORPUSCULAR VOLUME 86 fL (82-100); MONOCYTES # (AUTO) 0.9 K/uL (0.1-1.30); MONOCYTES % (AUTO) 7.4 % (2.0-12.0); NEUTROPHILS # (AUTO) 10.5 K/uL (1.8-8.9); NEUTROPHILS % (AUTO) 82.1 % (43.0-81.0); PLATELET COUNT (AUTO) 305 K/uL (150-450); RED BLOOD CELL COUNT(AUTO) 5.25 MIL/uL (4.0-5.2); RED CELL DISTRIBUTION WIDTH 15.1 % (11.5-15.0); WHITE BLOOD COUNT (AUTO) 12.8 K/uL (4.3-11.0)
[2024-12-25 07:55] LABS: CREATININE 0.6 mg/dL (0.6-1.3); MAGNESIUM 2.2 mg/dL (1.8-2.4); PHOSPHORUS 2.3 mg/dL (2.5-4.9); POTASSIUM 3.5 mmol/L (3.5-5.1)
[2024-12-25 08:00] VITALS: BP 166/81; TEMP 97.9; O2SAT 95
[2024-12-25 09:00] VITALS: BP 166/81; TEMP 97.9; O2SAT 95
[2024-12-25 09:16] LABS: LYMPHOCYTES % (MANUAL) 9 % (16-48); MONOCYTES % (MANUAL) 8 % (0-11.0); NEUTROPHILS % (MANUAL) 82 (42-76)
[2024-12-25 09:17] LABS: EOSINOPHILS % (MANUAL) 1 % (0-4); PLATELET ESTIMATE ADEQUATE
[2024-12-25 09:20] LABS: ANISOCYTOSIS 1+
[2024-12-25 09:24] VITALS: BP 150/65
[2024-12-25] MEDS: PPN #3 IV SCH (10:33)
[2024-12-25] MEDS: IV NS 0.9% 1,000 ML IV PRN (10:42)
[2024-12-25 12:00] VITALS: BP_SYST 160; BP_SYST 182; BP_DIAS 95; BP_DIAS 98
[2024-12-25] MEDS: POTASSIUM PHOSPHATE MM 7.5 MMOL in IV NS 0.9% 100 ML IV SCH (12:07)
[2024-12-25] MEDS: hydrALAZINE HCL IV 20 MG VIAL IV PRN (12:54)
[2024-12-25 13:43] VITALS: BP 163/80; TEMP 97.7; O2SAT 98
[2024-12-25] MEDS ORDERED: hydrALAZINE HCL IV 20 MG VIAL IV PRN (14:00)
[2024-12-25 16:00] VITALS: BP 145/74; TEMP 98.4; O2SAT 97
[2024-12-25] MEDS ORDERED: ASPI-1169 PO (19:57)
[2024-12-25] MEDS ORDERED: HYDR20VI4 IV (19:57)
[2024-12-25] MEDS ORDERED: PIPE3.379 IV (19:57)
[2024-12-25] MEDS ORDERED: FERR325T28 PO (19:57)
[2024-12-25] MEDS ORDERED: DOCU100C36 PO (19:57)
[2024-12-25] MEDS ORDERED: ACET325T53 PO (19:57)
[2024-12-25] MEDS ORDERED: INSU100V28 SQ (19:57)
[2024-12-25] MEDS ORDERED: METO50TA7 PO (19:57)
[2024-12-25] MEDS ORDERED: ATOR10TA PO (19:57)
[2024-12-25] MEDS ORDERED: ALLO100T25 PO (19:57)
[2024-12-25] MEDS ORDERED: FLUC200P12 IV (19:57)
[2024-12-25] MEDS ORDERED: DONE5TAB34 PO (19:57)
[2024-12-25] MEDS ORDERED: DILT120C87 PO (19:57)
[2024-12-25] MEDS ORDERED: FLUCONAZOLE IN NS 100 MG in PREMIX 1 EA IV SCH (20:00)
== END 2024-12-25 21:17 | disposition short-term general hospital (02) | DRG 871 ==
LOC: ER 23:06 → TELE 12-18 05:23 → MED 12-23 17:49 → TELE 12-25 18:15
PROVIDERS: ADMIT Internal Medicine; ATTEND Nurse Practitioner Acute Care
PROC: 0W9G30Z Drainage of Peritoneal Cavity with Drainage Device, Percutaneous Approach (ICD-10-PCS; principal; 2024-12-22)
PROC: 05HC33Z Insertion of Infusion Device into Left Basilic Vein, Percutaneous Approach (ICD-10-PCS; 2024-12-23)
DX: A41.9 Sepsis, unspecified organism (principal); G92.8 Other toxic encephalopathy; J15.9 Unspecified bacterial pneumonia; I21.4 Non-ST elevation (NSTEMI) myocardial infarction; N39.0 Urinary tract infection, site not specified; E87.20 Acidosis, unspecified; K82.3 Fistula of gallbladder; K82.A2 Perforation of gallbladder in cholecystitis; R65.20 Severe sepsis without septic shock; B96.1 Klebsiella pneumoniae [K. pneumoniae] as the cause of diseases classified elsewhere; E78.5 Hyperlipidemia, unspecified; E11.40 Type 2 diabetes mellitus with diabetic neuropathy, unspecified; Z91.81 History of falling; I27.20 Pulmonary hypertension, unspecified; K81.1 Chronic cholecystitis; G30.9 Alzheimer's disease, unspecified; F02.80 Dementia in other diseases classified elsewhere, unspecified severity, without behavioral disturbance, psychotic disturbance, mood disturbance, and anxiety; I48.0 Paroxysmal atrial fibrillation; N81.9 Female genital prolapse, unspecified; K29.80 Duodenitis without bleeding; E66.01 Morbid (severe) obesity due to excess calories; I10 Essential (primary) hypertension; Z87.19 Personal history of other diseases of the digestive system; Z86.73 Personal history of transient ischemic attack (TIA), and cerebral infarction without residual deficits; Z79.82 Long term (current) use of aspirin; Z79.84 Long term (current) use of oral hypoglycemic drugs; Z79.899 Other long term (current) drug therapy
CPT/HCPCS: 36415; 70450-TC; 71045-TC; 75989-TC; 80048-TC; 80053-TC; 80076-TC; 81001; 82962-TC; 83605-TC; 83735-TC; 84100-TC; 84478-TC; 84484-TC; 85025-TC; 85730-TC; 87040-TC; 87086-TC; 87186-TC; 93307-TC; 94799-TC; 97110-TC; 97116-TC; 97530-TC; A4216; A4223; G0378; J0360; J0456; J0692; J0696; J1450; J1644; J1815; J2250; J2543; J3010; J3370; J3475; J3480; J3490; J7030; J7040; J7050; J7060; Q9963; Q9967

== ENCOUNTER 2025-03-18 15:47 | Inpatient (IN) | payer MEDICARE, OTHER ==
[~2025-03-18] VITALS: Ht 170.2 cm; Wt 99.3 kg
[~2025-03-18 15:47] MED LIST changes: +ACET325T53 PO; -ALLO100T PO; +ALLO100T25 PO; +ATOR10TA PO; -ATOR20TA PO; -CELE-85 PO; -CHOL500062 PO; -CIPR500T5 PO; -DAPA10TA PO; +DILT120C87 PO; -DILT120T14 PO; +DOCU100C36 PO; -DONE10TA44 PO; +DONE5TAB34 PO; -FERR324T4 PO; +FERR325T28 PO; +FLUC200P12 IV; +HYDR20VI4 IV; -IBUP1TAB68 PO; +INSU100V28 SQ; -METO-358 PO; +METO50TA7 PO; +PIPE3.379 IV; -POTA-10 PO; -SITA1TAB2 PO
[2025-03-18 18:33] LABS: PLATELET COUNT (AUTO) 405 K/uL (150-450); RED BLOOD CELL COUNT(AUTO) 4.87 MIL/uL (4.0-5.2); RED CELL DISTRIBUTION WIDTH 15.2 % (11.5-15.0); WHITE BLOOD COUNT (AUTO) 10.3 K/uL (4.3-11.0)
[2025-03-18 18:41] LABS: CALCIUM, SERUM 9.1 mg/dL (8.5-10.1); CREATININE 1.3 mg/dL (0.6-1.3); SODIUM SERUM 137 mmol/L (136-145); UREA NITROGEN, BLOOD 18 mg/dL (7-18)
[2025-03-18 18:45] LABS: INR 1.05 (0.91-1.10)
[2025-03-18 18:57] LABS: ASPARTATE AMINOTRANSFERASE 27 U/L (15-37); TOTAL PROTEIN, SERUM 7.1 g/dL (6.4-8.2)
[2025-03-18] MEDS ORDERED: IOHEXOL-300 100 ML VIAL IV ONE (19:03)
[2025-03-18] MEDS ORDERED: IV NS 0.9% 250 ML IV ONE (19:04)
[2025-03-18] MEDS ORDERED: ACETAMINOPHEN ES 500 MG TABLET ONE (21:36)
[2025-03-18] MEDS: ACETAMINOPHEN 650 MG/20.3 ML UDC NG ONE (21:37)
[2025-03-18 22:16] VITALS: BP 145/98; TEMP 97.3; O2SAT 94
[2025-03-18 22:30] VITALS: BP 128/78; TEMP 98.1; O2SAT 98
[2025-03-18] MEDS ORDERED: Z GUARD REMEDY 4 OZ OINT TP PRN (22:30)
[2025-03-18] MEDS ORDERED: MAG HYDROX/AL HYDROX/SIMETH 30 ML UDC PO PRN (22:30)
[2025-03-18] MEDS ORDERED: ONDANSETRON HCL/PF 4 MG/2 ML VIAL IVP PRN (22:30)
[2025-03-18] MEDS ORDERED: ZOLPIDEM TARTRATE 5 MG TABLET PO PRN (22:30)
[2025-03-18] MEDS ORDERED: MAGNESIUM HYDROXIDE 30 ML UDC PO PRN (22:30)
[2025-03-19] VITALS (9 sets, daily range): BP systolic 103–158; BP diastolic 52–91; TEMP 97.5–98.6; O2SAT 93–98
[2025-03-19] MEDS ORDERED: DEXTROSE 50%-WATER 50 ML DISP.SYRIN IV PRN (04:00)
[2025-03-19 07:01] LABS: PLATELET COUNT (AUTO) 382 K/uL (150-450); RED BLOOD CELL COUNT(AUTO) 4.85 MIL/uL (4.0-5.2); RED CELL DISTRIBUTION WIDTH 15.3 % (11.5-15.0); WHITE BLOOD COUNT (AUTO) 8.8 K/uL (4.3-11.0)
[2025-03-19] MEDS: BLOOD SUGAR DIAGNOSTIC 1 EACH STRIP IN SCH (07:37)
[2025-03-19] MEDS: CARVEDILOL 6.25 MG TABLET PO SCH (08:48)
[2025-03-19] MEDS: ASPIRIN 81 MG TAB.CHEW PO SCH (08:48)
[2025-03-19] MEDS: APIXABAN 5 MG TABLET PO SCH (08:49)
[2025-03-19 09:05] LABS: CALCIUM, SERUM 9.1 mg/dL (8.5-10.1); CREATININE 1.1 mg/dL (0.6-1.3); PHOSPHORUS 4.1 mg/dL (2.5-4.9); SODIUM SERUM 140.0 mmol/L (136-145); UREA NITROGEN, BLOOD 20.0 mg/dL (7-18)
[2025-03-19 09:09] LABS: LDL 86 mg/dL (0-99)
[2025-03-19] MEDS: PANTOPRAZOLE 40 MG TABLET.DR PO SCH (09:32)
[2025-03-19] MEDS: INSULIN REGULAR, HUMAN 100 UNIT/ML 3 ML VIAL SQ PRN (11:43)
[2025-03-19] MEDS: ATORVASTATIN 10 MG TABLET PO SCH (21:03)
[2025-03-20] VITALS: BP 138/87; TEMP 98.1; O2SAT 92
[2025-03-20 08:00] VITALS: BP 130/69; TEMP 97.5; O2SAT 96
[2025-03-20] MEDS: ACETAMINOPHEN 325 MG TABLET PO PRN (10:58)
[2025-03-20 16:00] VITALS: BP 130/64; TEMP 98.4; O2SAT 94
[2025-03-20 20:00] VITALS: BP 104/65; TEMP 97.5; O2SAT 94
[2025-03-21] VITALS: BP 137/74; TEMP 97.8; O2SAT 96
[2025-03-21 04:00] VITALS: BP 153/93; TEMP 98.1; O2SAT 93
[2025-03-21 08:00] VITALS: BP 154/99; TEMP 97.5; O2SAT 97
[2025-03-21 16:00] VITALS: BP 129/78; TEMP 97.7; O2SAT 98
[2025-03-21 16:34] VITALS: BP 129/78
== END 2025-03-21 18:47 | DRG 73 ==
LOC: ER 15:50 → TELE 21:23 → MED 03-21 10:47
PROVIDERS: ADMIT Registered Nurse Psychiatric/Mental Health
DX: G90.89 Other disorders of autonomic nervous system (principal); I21.A1 Myocardial infarction type 2; S22.41XA Multiple fractures of ribs, right side, initial encounter for closed fracture; I48.0 Paroxysmal atrial fibrillation; F03.90 Unspecified dementia, unspecified severity, without behavioral disturbance, psychotic disturbance, mood disturbance, and anxiety; E11.9 Type 2 diabetes mellitus without complications; E66.9 Obesity, unspecified; E78.5 Hyperlipidemia, unspecified; I50.9 Heart failure, unspecified; K40.90 Unilateral inguinal hernia, without obstruction or gangrene, not specified as recurrent; M19.90 Unspecified osteoarthritis, unspecified site; I11.0 Hypertensive heart disease with heart failure; I27.20 Pulmonary hypertension, unspecified; Z79.01 Long term (current) use of anticoagulants; Z79.4 Long term (current) use of insulin; Z86.73 Personal history of transient ischemic attack (TIA), and cerebral infarction without residual deficits; W01.0XXA Fall on same level from slipping, tripping and stumbling without subsequent striking against object, initial encounter; Y93.9 Activity, unspecified; Z96.89 Presence of other specified functional implants; Y92.009 Unspecified place in unspecified non-institutional (private) residence as the place of occurrence of the external cause
CPT/HCPCS: 36415; 70450-TC; 71100-TC; 71260-TC; 73060-TC; 76700-TC; 80048-TC; 80061-TC; 80076-TC; 82962-TC; 83735-TC; 84100-TC; 84484-TC; 85025-TC; 85730-TC; 87081-TC; 97110-TC; 97112-TC; 97116-TC; 97530-TC; G0378; J1815; J7050; Q9967